=== PATIENT | female | born 1940 | race Caucasian/White ===

== ENCOUNTER 2017-02-22 09:43 | Observation (INO) | payer MEDICARE, BC ==
--- NOTE | 2017-02-22 10:04 | ERNOTE ---
Chest Pain/Cardiac HPI Date of Service: 02/22/17 Chief Complaint: Chest Pain Time Seen by Provider: 02/22/17 10:01 Source: patient Immunizations: IMMUNIZATION HX History of Influenza Vaccine Yes Hx Pneumococcal Vaccination Yes Allergies/Adverse Reactions: Allergies ciprofloxacin [From Cipro] Allergy (Unknown, Verified 02/22/17 09:59) ciprofloxacin HCl [From Cipro] Allergy (Unknown, Verified 02/22/17 09:59) sulfamethoxazole [From Bactrim] Allergy (Unknown, Verified 02/22/17 09:59) trimethoprim [From Bactrim] Allergy (Unknown, Verified 02/22/17 09:59) Sulfa (Sulfonamide Antibiotics) Allergy (Verified 02/22/17 09:59) Home Medications: HOME MEDICATIONS Oxybutynin Chloride 5 mg PO TID 02/28/12 [Last Taken Unknown] Aspirin 81 mg PO DAILY 01/18/16 [Last Taken Unknown] Atorvastatin Calcium 40 mg PO DAILY 01/18/16 [Last Taken Unknown] Clopidogrel Bisulfate 75 mg PO DAILY 01/18/16 [Last Taken Unknown] Doc-Q-Lace 100 mg PO BID 01/18/16 [Last Taken Unknown] Oyster Shell Calcium-Magnes Tb 1,250 mg PO DAILY 01/18/16 [Last Taken Unknown] Pantoprazole Sodium 40 mg PO DAILY 01/18/16 [Last Taken Unknown] Tylenol 500 mg PO TID 01/18/16 [Last Taken Unknown] Nitroglycerin [Nitrostat] 0.4 mg SL Q5MIN PRN 02/22/17 [Last Taken Unknown] Narrative: chest pain Date (Duration): 02/21/17 Timing: constant Severity/Quality: severe Location: substernal, central Chest Pain Radiation: no radiation Activities at Onset: rest Modifying Factors - Improves: Present: other - tylenol was of no help Modifying Factors - Worsens: Present: nitroglycerin, other - helped Nitro Today/Relief: 0.4 mg x 1, provided by ED, complete relief Aspirin Treatment Today: no aspirin today - patient is on blood thinner Review of Systems - Review of Systems Constitutional: Present: no symptoms reported EYE: Present: no symptoms reported ENT: Present: no symptoms reported Respiratory: Present: no symptoms reported Cardiology: Present: chest pain - anterior chest Gastrointestinal/Abdominal: Present: no symptoms reported, other - has chronic mild incontinence, no dysuria Genitourinary: Present: no symptoms reported Musculoskeletal: Present: no symptoms reported Skin: Present: no symptoms reported Neurological: Present: See HPI, other - has hx of Stroke with residual weaknes of lower ext and needs walker and wheelchair to get around at home Endocrine: Present: no symptoms reported Hematologic/Lymphatic: Present: easy bruising, other - currently on blood thinner Psych: Present: anxiety, other - hx of drinking beer daily All Other Systems: All systems neg except as marked - Narrative Narrative: all reviewed today , pmh, psh, allergies, meds, sh, and fam hx. - Patient's Past Medical History Patient History - Medical: Other - hx of stroke in 2016 with residual weakness Patient History - Cardiac/Respiratory: COPD, Valvular Heart Disease - chronic tobacco 1ppd daily greater than 50 years Patient History - Cancer: No Hx of Cancer Patient History - Surgical Procedures: Colonoscopy, T & A Patient History - Other: None LMP (females 10-50): Menopausal - Family History Sister Family History - Medical: Other - mother of pulmonary embolus - Social History Living Situations: home Psych History: No pertinent hx Alcohol Use: none Drug Use: none - Immunizations Hx Pneumococcal Vaccination: Yes History of Influenza Vaccine: Yes Physical Exam - Physical Exam General Appearance: Present: wd/wn, alert Head Exam: Present: normal inspection, no evidence of injury, no tenderness w palpation Ears, Nose, Throat: Present: normal ENT inspection, normal pharynx Neck: Present: normal inspection, nontender Respiratory: Present: no respiratory distress, decreased breath sounds, rhonchi Cardiovascular/Chest: Present: regular rate, rhythm, no murmur, normal peripheral pulses Peripheral Pulses: N=norm/S=strong/W=weak/B=bound/A=absent: Carotid (R): Normal , Carotid (L): Normal, Radial (R): Normal, Radial (L): Normal Gastrointestinal/Abdominal: Present: normal bowel sounds, nontender, nondistended Rectal Exam: Present: deferred Pelvic Exam: Present: deferred Back Exam: Present: normal inspection, normal range of motion, no vertebral tenderness Extremity Exam: Present: normal inspection, non-tender Neurological Exam: Present: alert, oriented, normal mood/affect, motor weakness - right lower ext Skin Exam: Present: normal color, warm/dry Lymphatic Exam: Present: no adenopathy ED Progress - Results and Orders Patient's Lab Results:: I have reviewed the patient's lab results. Results and Orders: Laboratory Tests 02/22/17 02/22/17 02/22/17 10:00 10:00 10:00 WBC 12.1 H RBC 4.25 Hgb 13.5 Hct 40.7 MCV 95.8 MCH 31.8 H MCHC 33.2 RDW 14.4 H Plt Count 240 MPV 10.4 H Immature Gran % (Auto) 0.20 Immature Gran # (Auto) 0.03 Neutrophils % 78.1 H Lymphocytes % 10.2 L Monocytes % 10.6 H Eosinophils % 0.7 Basophils % 0.2 Nucleated RBC % 0.0 Neutrophils # 9.4 H Lymphocytes # 1.2 L Monocytes # 1.3 H Eosinophils # 0.1 Absolute Basophils 0.0 PT 9.4 INR (Anticoag Therapy) 0.94 PTT (Leonardo) 22.7 L Sodium 139 Plasma Sodium 139 Potassium 3.9 Chloride 103 Carbon Dioxide 28.9 Anion Gap 11.0 BUN 23 Creatinine 1.13 Est GFR (Non-Af Amer) 50 L BUN/Creatinine Ratio 20.4 Random Glucose 126 H Calcium 9.6 Calcium Adj for Albumin 9.8 Total Bilirubin 0.4 AST 35 ALT 30 Alkaline Phosphatase 97 Troponin I 0.020 B-Natriuretic Peptide 2030 H Total Protein 7.5 Albumin 3.3 L - Vital Signs Patient's Vital Signs:: I have reviewed the patient's vital signs. Vital Signs: Vital Signs 02/22/17 09:51 Temperature 36.4 C L Pulse Rate 85 Respiratory 22 H Rate Blood Pressure 142/80 O2 Sat by Pulse 98 Oximetry - EKG EKG: NSR - X-Ray X-Ray #1 X-Ray: chest Interpretation: Reviewed by me X-ray Comments: [facility] PATIENT RADIOLOGY STUDY REPORT Patient Patient Name:LISETTE FIELD Date: 1940 Sex: F Order Number: [id number] Unique Exam ID: [id number] Exam Requested: CXRPALAT - Chest PA Lateral * Date Scheduled: 02-22-2017 10:25 AM Study Priority: Requesting Service: Requesting Physician: Arely Garber Reason for Exam: Chest Pain Radiological Report : [place] [address] NAME: LISETTE FIELD : 1940 MR #: [id number] CC: Arely Garber DO LOC: ER ADM DATE: X-RAY REPORT [id number] RAD/Chest PA Lateral * Exam Date: 02/22/2017 10:25 Ordering Physician: Arely Garber HISTORY: Chest Pain Additional history from technologist: Chest pain getting worse in the last couple days. TECHNIQUE: PA and lateral views of the chest were obtained. 2 images. COMPARISONS: 04/21/2015 FINDINGS: Chest PA Lateral * Hyperinflated lung volumes, with hyperlucent lungs. No consolidation or mass. No pneumothorax or pleural fluid collections. Cardiac size within normal limits, and overall grossly unchanged. Mild tortuosity of the thoracic aorta, stable. Patient has a large hiatal hernia with a significant portion of the stomach projecting posterior to the heart. Trachea is in normal position. Bones show degenerative changes of the spine. Decreased mineralization of bone suggestive of underlying osteopenia or osteoporosis. IMPRESSION: 1. Findings compatible with acute or chronic bronchitis versus reactive airways disease. Also consider COPD/emphysema, if the patient has history of smoking. 2. Large hiatal hernia. 3. Additional comments are as above. Electronically signed by Dez Cotton M.D.. Dez Cotton MD Dict: 02/22/17 1028 Typed: 02/22/17 1028/ 02/22/17 1030 02/22/17 1033 - CT/Ultrasound CT/Ultrasound Narrative: CTA : [facility] PATIENT RADIOLOGY STUDY REPORT Patient Patient Name:LISETTE FIELD Date: 1940 Sex: F Order Number: [id number] Unique Exam ID: [id number] Exam Requested: ANGIOCHES - CTA Chest Date Scheduled: 02-22-2017 12:54 PM Study Priority: Requesting Service: Requesting Physician: Arely Garber Reason for Exam: rule out pe Radiological Report : [place] [address] NAME: LISETTE FIELD : 1940 MR #: [id number] CC: Arely Garber DO LOC: ER ADM DATE: X-RAY REPORT [id number] CT/CTA Chest Exam Date: 02/22/2017 12:54 Ordering Physician: Arely Garber HISTORY: Chest pain. TECHNIQUE: Multiple thin-section contrast-enhanced axial CT images of the chest were obtained after rapid infusion of intravenous contrast material, according to pulmonary angiography protocol. Coronal maximal intensity projection (MIP) images were also submitted for interpretation. Dose reduction techniques using the adjustment of the mA and/or kV according to patient size and/ or use of AEC or iterative reconstruction were used in the acquisition of this exam. COMPARISONS: 12/29/2014. FINDINGS: CTA Chest: Pulmonary Arteries: Diagnostic Quality (for pulmonary arteries): Opacification of the pulmonary arterial branches is adequate. The breath hold is adequate. There is streak artifact from contrast material within the superior vena cava, which affects the adjacent pulmonary arteries. No definite filling defects are noted to suggest pulmonary thromboembolism. No definite axial CT image findings of right heart strain. Aorta: Opacification of the thoracic aorta is suboptimal for angiographic evaluation but no definite focal finding is seen. Multiple artifacts related to cardiac motion and streak artifact from contrast in the adjacent superior vena cava noted. Mediastinum: No mediastinal mass or lymphadenopathy noted. Incidental note of a large hiatal hernia , with most of the stomach seen within the chest. Heart: No significant pericardial effusion noted. There is mild to moderate cardiomegaly noted, with cardiac chamber enlargement, especially the left and right atria. Lung Parenchyma: No new consolidation or focal mass identified. Emphysematous changes and bilateral basilar opacities noted suggestive of atelectasis. There is a peripheral 2 x 2 cm scarlike opacity in the medial segment of the right middle lobe, stable. Central Airways: The trachea and bronchi grossly patent. Pleural Spaces: No pneumothorax or pleural effusions present. Bones: There is a new T7 compression fracture, with no definite signs of retropulsion of the posterior cortex. There is underlying osteopenia/osteoporosis suggested. Degenerative changes of the thoracolumbar spine noted. Chest Wall/Axillae: Anterior chest wall is grossly unremarkable. Axillary regions are also grossly normal. Upper Abdomen: Visualized portions of the abdomen demonstrates probable cysts of the liver, partially visualized, but grossly stable. Bilateral low density nodular lesions of the adrenal glands, also stable most likely adenomas. IMPRESSION: 1. Negative for acute pulmonary thromboembolism. 2. Suboptimal opacification of the thoracic aorta for angiographic evaluation without obvious acute findings. Potential subtle aortic intimal tear/dissection cannot be entirely excluded. 3. Emphysematous changes of the lungs. 4. Stable scarlike opacity of the medial segment right middle lobe. Consider continued follow-up/ surveillance. 5. Cardiomegaly, with enlargement of the cardiac chambers, especially the atria. 6. T7 compression fracture, of indeterminate age. It is new since 2014. Correlate clinically for acute versus subacute/chronic fracture as a potential cause of chest pain/back pain. Consider insufficiency versus pathologic fracture. Consider further evaluation by nonemergent thoracic spine MRI. 7. Large hiatal hernia with most of the stomach within the chest. 8. Additional comments are as above. Electronically signed by Dez Cotton M.D.. Dez Cotton MD Dict: 02/22/17 1257 Typed: 02/22/17 1257/ 02/22/17 1311 02/22/17 1314 , Approved by: DEZ COTTON Approval Date: 02-22-2017 Approval Time: 12:57 PM THIS REPORT WAS RECEIVED FROM THE [employer] [facility] - Progress/Reassessment Chief Complaint: Chest Pain Progress:: Improved - down to just a discomfort - Transfer of Care Receiving Physician: Shauna Carvajal Pending Results: CT/MRI results - cta NEG FOR PE Expected Disposition: Admit Plan - Plan Plan: Patient is high risk for PE, strong family hx and will need admission for chest pain rule out Patient is pending a CTA for rule out of PE, high risk patient 2 day hx of sob and smokes 1ppd cta is neg for PE but she has a thoracic compression fracture at t5 which is new since 2014 and patient was notified of this finding on ct, and that there is a spot on her lungs concerning that will need followup as an outpatient Departure Clinical Impression: Chest pain Qualifiers: Chest pain type: chest pain on breathing Qualified Code(s): R07.1 - Chest pain on breathing Thoracic compression fracture Qualifiers: Encounter type: sequela Fracture type: closed Qualified Code(s): S22.000S - Wedge compression fracture of unspecified thoracic vertebra, sequela COPD (chronic obstructive pulmonary disease) Qualifiers: COPD type: emphysema Emphysema type: panlobular Qualified Code(s): J43.1 - Panlobular emphysema - Departure Disposition: [facility] Condition: Good
[2017-02-22 10:13] LABS: Hematocrit 40.7 % (37.0-47.0); Hemoglobin 13.5 gm/dL (12.5-16.0); Mean Cell Volume 95.8 fl (78-100); Mean Corpuscular Hemoglobin 31.8 pg (27-31); Mean Corpuscular Hgb Conc 33.2 g/dl (32-36); Mean Platelet Volume 10.4 fl (6.0-9.5); Neutrophil # 9.4 K/mm3 (1.3-6.0); Neutrophil % 78.1 % (42-75.0); Platelet Count 240 K/mm3 (150-450); Red Blood Count 4.25 M/mm3 (4.2-5.4); Red Cell Distribution Width 14.4 % (11.5-14.0); White Blood Count 12.1 K/mm3 (4.0-10.5)
[2017-02-22 10:25] LABS: Prothrombin Time (Patient) 9.4 Seconds (9.0-11.0)
[2017-02-22 10:27] LABS: INR 0.94 INR (0.90-1.10); Partial Thrombolplastin Time 22.7 Seconds (24-32)
[2017-02-22 10:33] LABS: Troponin I 0.02 ng/ml (0.00-0.10)
[2017-02-22 10:35] LABS: Albumin * 3.3 gm/dl (3.4-5.0); BUN/Creatinine Ratio 20.4 (9.0-21.6); Bilirubin, Total 0.4 mg/dL (0.0-1.1); Ca. Corrected For Albumin 9.8 mg/dL (8.4-10.2); Calcium * 9.6 mg/dL (7.9-10.9); Carbon Dioxide 28.9 mmol/L (24-32.6); Potassium 3.9 mmol/L (3.4-4.6); Total Protein 7.5 gm/dL (6.2-8.2)
[2017-02-22] MEDS ORDERED: NORMAL SALINE 250 ML IV ONE (12:09)
[2017-02-22] MEDS ORDERED: ACETAMINOPHEN 325 MG TABLET ONE (13:46)
[2017-02-22] MEDS ORDERED: ACETAMINOPHEN 325 MG TABLET PO ONE (13:46)
--- NOTE | 2017-02-22 16:22 | HP ---
Chief Complaint - Chief Complaint Date of Service: 02/22/17 Time of Service: 16:17 Chief Complaint: chest pain/back pain/neck pain History of Present Illness: Lynda Emanuel, is a 76-year-old white female, patient of Dr. Crockett, with previous medical history of CVA, nonruptured cerebral aneurysm, degenerative disc disease, hypertension, hyperlipidemia, chronic smoking, who was admitted on 02/22/2017 because of sudden acute chest pain, back pain and neck pain. One day prior to admission the patient was in her usual self until she suddenly developed chest pain, back pain, neck pain, and shoulder pain. She said it was over more than 10 over 10, nonrelenting, stabbing in character, not increased with activity, not associated with N/V. She took her usual Tylenol arthritis and he did not give any relief and so she went or emergency room today. Her EKg showed NSR, troponin was WNL, CXR showed no acute cardiopulmonary findings except for hiatal hernia and COPD changes. She was then admitted for further workup. Her CTA did not show P.E. or dissection but showed T 7 compression fracture of indeterminate age. She deneid any h/o trauma. - Patient's Past Medical History Patient History - Medical: Other - hx of stroke in 2016 with residual weakness Patient History - Cardiac/Respiratory: COPD, Valvular Heart Disease - chronic tobacco 1ppd daily greater than 50 years Patient History - Cancer: No Hx of Cancer Patient History - Surgical Procedures: Colonoscopy, T & A Patient History - Other: None LMP (females 10-50): Menopausal - Family History Sister Family History - Medical: Other - mother of pulmonary embolus Family History - Cardiac/Respiratory: Asthma, Hypertension Family History - Cancer: No pertinent family hx Mother Family History - Medical: , No pertinent hx Family History - Cardiac/Respiratory: Pulmonary Embolism Family History - Cancer: No pertinent family hx Father Family History - Medical: , Diabetes Type 2 Insulin Dependent Family History - Cardiac/Respiratory: History Unknown Family History - Cancer: No pertinent family hx - Social History Living Situations: home Psych History: No pertinent hx Smoking Status: Current every day smoker Have you smoked in the past 12 months: Yes Do you dip or chew tobacco: No Smoking Start Date: 02/25/59 Patient requests Smoking Cessation Consult: No Initiate information on Smoking Cessation: Yes Alcohol Use: none Drug Use: none - Immunizations Hx Pneumococcal Vaccination: Yes History of Influenza Vaccine: Yes Review Of Systems (GEN) - Review of Systems Generalized/Overall Review: Absent: Weakness, Chills, Fever Respiratory: Present: Cough, Shortness of Breath Cardiac: Present: Chest Pain. Absent: Edema, Palpitations Abdominal: Absent: Nausea, Vomiting Genitourinary: Absent: Urgency, Frequency Musculoskeletal: Present: Joint Pain - shoulder, Back Pain, Neck Pain Immunizations: IMMUNIZATION HX History of Influenza Vaccine Yes Hx Pneumococcal Vaccination Yes Allergies/Adverse Reactions: Allergies Allergy/AdvReac Type Severity Reaction Status Date / Time ciprofloxacin [From Cipro] Allergy Unknown Verified 02/22/17 16:11 ciprofloxacin HCl Allergy Unknown Verified 02/22/17 16:11 [From Cipro] sulfamethoxazole Allergy Unknown Verified 02/22/17 16:11 [From Bactrim] trimethoprim [From Bactrim] Allergy Unknown Verified 02/22/17 16:11 Sulfa (Sulfonamide Allergy Verified 02/22/17 16:11 Antibiotics) Home Medications: HOME MEDICATIONS Oxybutynin Chloride 5 mg PO TID 02/28/12 [Last Taken Unknown] Acetaminophen [Tylenol] 500 mg PO BID 02/22/17 [Last Taken Unknown] Aspirin [Aspirin EC] 81 mg PO DAILY 02/22/17 [Last Taken Unknown] Atorvastatin Calcium [Lipitor] 40 mg PO HS 02/22/17 [Last Taken Unknown] Calcium Carbonate/Vitamin D3 [Oyster Shell Calcium-Vit D Tab] 1 each PO DAILY [Last Taken Unknown] Clopidogrel Bisulfate [Plavix] 75 mg PO DAILY 02/22/17 [Last Taken Unknown] Docusate Sodium [Doc-Q-Lace] 100 mg PO BID PRN 02/22/17 [Last Taken Unknown] Multivitamin [Multivitamins] 1 tab PO DAILY 02/22/17 [Last Taken Unknown] Pantoprazole Sodium 40 mg PO DAILY 02/22/17 [Last Taken Unknown] Exam - Exam Vital Signs: Vital Signs - Last Taken Temp 36.7 C 02/22/17 14:40 Pulse 93 02/22/17 14:40 Resp 20 02/22/17 14:40 BP 156/74 02/22/17 14:40 Pulse Ox 97 02/22/17 14:40 Constitutional: Present: Alert, Oriented x3, Cooperative, Elderly, Thin and frail ENT Exam: Present: hearing grossly normal Eye Exam: bilateral eye: normal inspection, PERRL, EOMI Neck: Present: supple Back Exam: Present: vertebral tenderness Respiratory: Present: decreased breath sounds, No rales, No wheezing Cardiovascular/Chest: Present: regular rate, rhythm, no JVD, no murmur Abdomen: Present: Normal bowel sounds, soft, nontender, nondistended Extremity: Present: no pedal edema, no calf tenderness Diagnostic Studies: Laboratory Results WBC 12.1 K/mm3 (4.0-10.5) H 02/22/17 10:00 RBC 4.25 M/mm3 (4.2-5.4) 02/22/17 10:00 Hgb 13.5 gm/dL (12.5-16.0) 02/22/17 10:00 Hct 40.7 % (37.0-47.0) 02/22/17 10:00 MCV 95.8 fl (78-100) 02/22/17 10:00 MCH 31.8 pg (27-31) H 02/22/17 10:00 MCHC 33.2 g/dl (32-36) 02/22/17 10:00 RDW 14.4 % (11.5-14.0) H 02/22/17 10:00 Plt Count 240 K/mm3 (150-450) 02/22/17 10:00 MPV 10.4 fl (6.0-9.5) H 02/22/17 10:00 Immature Gran % (Auto) 0.20 % (0.001-0.429) 02/22/17 10:00 Immature Gran # (Auto) 0.03 K/mm3 (0.000-0.0310) 02/22/17 10:00 Neutrophils % 78.1 % (42-75.0) H 02/22/17 10:00 Lymphocytes % 10.2 % (20-51) L 02/22/17 10:00 Monocytes % 10.6 % (0.0-9) H 02/22/17 10:00 Eosinophils % 0.7 % (0.0-3.0) 02/22/17 10:00 Basophils % 0.2 % (0.0-1.0) 02/22/17 10:00 Nucleated RBC % 0.0 k/mm3 (0-1) 02/22/17 10:00 Neutrophils # 9.4 K/mm3 (1.3-6.0) H 02/22/17 10:00 Lymphocytes # 1.2 k/mm3 (1.5-3.5) L 02/22/17 10:00 Monocytes # 1.3 k/mm3 (0.0-1.0) H 02/22/17 10:00 Eosinophils # 0.1 k/mm3 (0.0-0.7) 02/22/17 10:00 Absolute Basophils 0.0 k/mm3 (0.0-0.1) 02/22/17 10:00 PT 9.4 Seconds (9.0-11.0) 02/22/17 10:00 INR (Anticoag Therapy) 0.94 INR (0.90-1.10) 02/22/17 10:00 PTT (Fleming) 22.7 Seconds (24-32) L 02/22/17 10:00 Sodium 139 mmol/L (132-142) 02/22/17 10:00 Plasma Sodium 139 mmol/L (130-142) 02/22/17 10:00 Potassium 3.9 mmol/L (3.4-4.6) 02/22/17 10:00 Chloride 103 mmol/L (97-106) 02/22/17 10:00 Carbon Dioxide 28.9 mmol/L (24-32.6) 02/22/17 10:00 Anion Gap 11.0 mmol/L (6.8-13.8) 02/22/17 10:00 BUN 23 mg/dL (3-23) 02/22/17 10:00 Creatinine 1.13 mg/dL (0.4-1.4) 02/22/17 10:00 Est GFR (Non-Af Amer) 50 mL/min (60-130) L 02/22/17 10:00 BUN/Creatinine Ratio 20.4 (9.0-21.6) 02/22/17 10:00 Random Glucose 126 mg/dL (70-110) H 02/22/17 10:00 Calcium 9.6 mg/dL (7.9-10.9) 02/22/17 10:00 Calcium Adj for Albumin 9.8 mg/dL (8.4-10.2) 02/22/17 10:00 Total Bilirubin 0.4 mg/dL (0.0-1.1) 02/22/17 10:00 AST 35 U/L (0-48) 02/22/17 10:00 ALT 30 U/L (19-67) 02/22/17 10:00 Alkaline Phosphatase 97 U/L (50-170) 02/22/17 10:00 Troponin I 0.020 ng/ml (0.00-0.10) 02/22/17 10:00 B-Natriuretic Peptide 2030 pg/mL (5-550) H 02/22/17 10:00 Total Protein 7.5 gm/dL (6.2-8.2) 02/22/17 10:00 Albumin 3.3 gm/dl (3.4-5.0) L 02/22/17 10:00 Assessment/Plan - Assessment/Plan (1) Chest pain Assessment: likely due to T7 compression fracture as associated with back, neck pain, shoulder pain. will follow up with a second troponin and EKG. it is possible that it can be due to her severe hiatal hernia but less likely. no clear cut aortic dissection. Problem: Acute Qualifiers: Chest pain type: unspecified Qualified Code(s): R07.9 - Chest pain, unspecified (2) Thoracic compression fracture Assessment: T7 likely pathological from osteoporosis. will do MRI for age determination. Problem: Acute Qualifiers: Encounter type: sequela Fracture type: closed Qualified Code(s): S22.000S - Wedge compression fracture of unspecified thoracic vertebra, sequela (3) Osteoporosis Problem: Chronic (4) Elevated brain natriuretic peptide (BNP) level Assessment: likely due to her COPD Problem: Acute (5) Hiatal hernia Problem: Acute (6) Aneurysm, cerebral, nonruptured Problem: Chronic (7) Hypertension Problem: Chronic Qualifiers: Hypertension type: essential hypertension Qualified Code(s): I10 - Essential (primary) hypertension (8) Hyperlipidemia Problem: Chronic (9) PAD (peripheral artery disease) Problem: Chronic (10) History of CVA in adulthood Problem: Chronic
[2017-02-22] MEDS ORDERED: DOCUSATE SODIUM 100 MG CAPSULE PO PRN (16:40)
[2017-02-22] MEDS: OXYBUTYNIN CHLORIDE 5 MG TABLET PO SCH (16:46)
[2017-02-22] MEDS ORDERED: OXYBUTYNIN CHLORIDE 5 MG TABLET PO SCH (17:00)
[2017-02-22] MEDS: ACETAMINOPHEN 500 MG TABLET PO SCH (20:05)
[2017-02-22] MEDS ORDERED: ATORVASTATIN CALCIUM 40 MG TABLET PO SCH (21:00)
[2017-02-23] MEDS: HYDROcodone/ACETAMINOPHEN 1 EACH TABLET PO PRN ×2 (06:52→14:28)
[2017-02-23] MEDS ORDERED: PANTOPRAZOLE SODIUM 40 MG TABLET.EC PO SCH (07:00)
[2017-02-23] MEDS: OXYBUTYNIN CHLORIDE 5 MG TABLET PO SCH ×2 (08:28→14:29)
[2017-02-23] MEDS: ACETAMINOPHEN 500 MG TABLET PO SCH (08:29)
[2017-02-23] MEDS ORDERED: CLOPIDOGREL BISULFATE 75 MG TABLET PO SCH (09:00)
[2017-02-23] MEDS ORDERED: MULTIVITAMINS 1 CAP CAPSULE PO SCH (09:00)
[2017-02-23] MEDS ORDERED: ASPIRIN 81 MG TABLET.DR PO SCH (09:00)
[2017-02-23] MEDS ORDERED: CALCIUM CARBONATE/VITAMIN D3 1 TAB TABLET PO SCH (09:00)
[2017-02-23 09:53] VITALS: BP 123/77
--- NOTE | 2017-02-23 10:02 | DS ---
(1) Chest pain Diagnosis(s): AMI ruled out. Problem: Acute QualifierTitle: Chest pain type: unspecified Qualified Code(s): R07.9 - Chest pain, unspecified (2) Thoracic compression fracture Diagnosis(s): T7 old compression Problem: Acute QualifierTitle: Encounter type: sequela Fracture type: closed Qualified Code(s): S22.000S - Wedge compression fracture of unspecified thoracic vertebra, sequela (3) Osteoporosis Problem: Chronic (4) Elevated brain natriuretic peptide (BNP) level Problem: Acute (5) Hiatal hernia Problem: Acute (6) Aneurysm, cerebral, nonruptured Problem: Chronic (7) Hypertension Problem: Chronic QualifierTitle: Hypertension type: essential hypertension Qualified Code( s): I10 - Essential (primary) hypertension (8) Hyperlipidemia Problem: Chronic (9) PAD (peripheral artery disease) Problem: Chronic (10) History of CVA in adulthood Problem: Chronic Description of Stay: Lynda Emanuel, is a 76-year-old white female, patient of Dr. Crockett, with previous medical history of CVA, nonruptured cerebral aneurysm, degenerative disc disease, hypertension, hyperlipidemia, chronic smoking, who was admitted on 02/22/2017 because of sudden acute chest pain, back pain and neck pain. One day prior to admission the patient was in her usual self until she suddenly developed chest pain, back pain, neck pain, and shoulder pain. She said it was over more than 10 over 10, nonrelenting, stabbing in character, not increased with activity, not associated with N/V. She took her usual Tylenol arthritis and he did not give any relief and so she went or emergency room today. Her EKg showed NSR, troponin was WNL, CXR showed no acute cardiopulmonary findings except for hiatal hernia and COPD changes. She was then admitted for further workup. Her CTA did not show P.E. or dissection but showed T 7 compression fracture of indeterminate age. She denied any h/o trauma. We did an MRI and it showed no edema and likely an old fracture. Her pain was better controlled with Marmora. She was ruled out for AMI. Will discharge patient today and will leave it up to her PCP if he wants to schedule an outpatient stress test. Procedures Performed: none Discharge Disposition: Home self care Disposition: Home self-care Condition: Good Discharge Diet: Low salt Problem Oriented Discharge Instructions to Patient/Family: Spinal Compression Fracture, Chest Pain Observation Additional Patient Instructions (free text): TCM appointment unless assisted discharge. Thank you! Maeve @ [phone]. Follow up with her PCP- Dr Crockett next week.03-05-17 @ 1:00pm. Has [facility] ongoing, please call and fax discharge orders to [facility]. Prescriptions (Any new or edited meds): HYDROcodone/ACETAMINOPHEN [Marmora 5-325] 1 each PO Q4H PRN #30 tablet PRN Reason: Moderate Pain (Pain Scale 4-6) Complete Home Medications List: Complete Home Medication List: Oxybutynin Chloride 5 mg PO TID 02/28/12 Acetaminophen [Tylenol] 500 mg PO BID 02/22/17 Aspirin [Aspirin EC] 81 mg PO DAILY 02/22/17 Atorvastatin Calcium [Lipitor] 40 mg PO HS 02/22/17 Calcium Carbonate/Vitamin D3 [Oyster Shell Calcium-Vit D Tab] 1 each PO DAILY Clopidogrel Bisulfate [Plavix] 75 mg PO DAILY 02/22/17 Docusate Sodium [Doc-Q-Lace] 100 mg PO BID PRN 02/22/17 Multivitamin [Multivitamins] 1 tab PO DAILY 02/22/17 Pantoprazole Sodium 40 mg PO DAILY 02/22/17 HYDROcodone/ACETAMINOPHEN [Marmora 5-325] 1 each PO Q4H PRN #30 tablet 02/23/17
== END 2017-02-23 16:40 | disposition home health service (06) ==
LOC: ER 09:43 → MS 14:05
PROVIDERS: ADMIT Internal Medicine; ATTEND Internal Medicine
DX: I10 Essential (primary) hypertension; M51.34 Other intervertebral disc degeneration, thoracic region; I73.9 Peripheral vascular disease, unspecified; M48.54XA Collapsed vertebra, not elsewhere classified, thoracic region, initial encounter for fracture; R07.1 Chest pain on breathing; M81.0 Age-related osteoporosis without current pathological fracture; F17.210 Nicotine dependence, cigarettes, uncomplicated; J43.1 Panlobular emphysema; E78.5 Hyperlipidemia, unspecified

== ENCOUNTER 2017-05-06 19:47 | Inpatient (IN) | payer MEDICARE, BC ==
--- NOTE | 2017-05-06 20:15 | ERNOTE ---
Dyspnea - General Presenting Symptoms: shortness of breath Time Seen by Provider: 05/06/17 20:00 Source: patient Exam Limitations: no limitations - Immun/Allergies/Home Medications Immunizations: IMMUNIZATION HX Immunizations Up to Date Yes History of Influenza Vaccine Yes Hx Pneumococcal Vaccination Yes Allergies/Adverse Reactions: Allergies ciprofloxacin [From Cipro] Allergy (Unknown, Verified 02/22/17 16:11) ciprofloxacin HCl [From Cipro] Allergy (Unknown, Verified 02/22/17 16:11) sulfamethoxazole [From Bactrim] Allergy (Unknown, Verified 02/22/17 16:11) trimethoprim [From Bactrim] Allergy (Unknown, Verified 02/22/17 16:11) Sulfa (Sulfonamide Antibiotics) Allergy (Verified 02/22/17 16:11) Home Medications: HOME MEDICATIONS Oxybutynin Chloride 5 mg PO TID 02/28/12 [Last Taken Unknown] Acetaminophen [Tylenol] 500 mg PO BID PRN 02/22/17 [Last Taken Unknown] Aspirin [Aspirin EC] 81 mg PO DAILY 02/22/17 [Last Taken Unknown] Atorvastatin Calcium [Lipitor] 40 mg PO HS 02/22/17 [Last Taken Unknown] Calcium Carbonate/Vitamin D3 [Oyster Shell Calcium-Vit D Tab] 1 each PO DAILY [Last Taken Unknown] Clopidogrel Bisulfate [Plavix] 75 mg PO DAILY 02/22/17 [Last Taken Unknown] Multivitamin [Multivitamins] 1 tab PO DAILY 02/22/17 [Last Taken Unknown] Pantoprazole Sodium 40 mg PO DAILY 02/22/17 [Last Taken Unknown] - History of Present Illness Narrative: Pt has had shortness of breath off and on for 2 days. today it continued to worsen. Severity: moderate Treatment SCRAP PREPARATION SUPERVISOR: none Initiating event: Reports: none Frequency of episodes: Reports: no prior episodes Modifying Factors - (Improves): Reports: nothing Modifying Factors (Worsens): Reports: nothing Associated Symptoms-Dyspnea: Reports: anxiety - believes this may be due to anxiety. Denies: fever/chills Review of Systems - Review of Systems Constitutional: Absent: recent illness, fever EYE: Absent: vision changes ENT: Present: nose congestion - minimal Respiratory: Present: See HPI Cardiology: Absent: chest pain Gastrointestinal/Abdominal: Present: diarrhea - on occasion. Absent: nausea, vomiting Genitourinary: Absent: frequency, dysuria Musculoskeletal: Absent: back pain, neck pain Skin: Absent: rash Neurological: Present: anxiety. Absent: numbness, tingling Endocrine: Absent: excessive sweating - Patient's Past Medical History Patient History - Medical: Osteoporosis Patient History - Cardiac/Respiratory: Aneurysm, COPD, CVA/Stroke, Hypertension , Hyperlipidemia, Valvular Heart Disease Patient History - Cancer: No Hx of Cancer Patient History - Surgical Procedures: Back Surgery, Cataracts, Colonoscopy, T & A, Other, Urology Patient History - Other: None LMP (females 10-50): Menopausal - Family History Sister Family History - Medical: Other Family History - Cardiac/Respiratory: Asthma, Hypertension Family History - Cancer: No pertinent family hx Mother Family History - Medical: , No pertinent hx Family History - Cardiac/Respiratory: Pulmonary Embolism Family History - Cancer: No pertinent family hx Father Family History - Medical: , Diabetes Type 2 Insulin Dependent Family History - Cardiac/Respiratory: History Unknown Family History - Cancer: No pertinent family hx - Social History Living Situations: home Psych History: No pertinent hx - Immunizations Immunizations Up to Date: Yes Hx Pneumococcal Vaccination: Yes History of Influenza Vaccine: Yes Physical Exam - Physical Exam General Appearance: Present: wd/wn, alert, no apparent distress Head Exam: Present: normal inspection, no evidence of injury Eye Exam: Normal inspection: bilateral Ears, Nose, Throat: Present: normal ENT inspection Neck: Present: normal inspection, nontender Respiratory: Present: no respiratory distress, normal breath sounds, lungs clear Cardiovascular/Chest: Present: regular rate, rhythm, no murmur, normal peripheral pulses Gastrointestinal/Abdominal: Present: nondistended Back Exam: Present: normal range of motion Extremity Exam: Present: normal inspection, normal range of motion, no edema Neurological Exam: Present: alert, oriented, normal mood/affect, no motor/ sensory deficits Skin Exam: Present: normal color, warm/dry Lymphatic Exam: Present: no adenopathy ED Progress - Results and Orders Patient's Lab Results:: I have reviewed the patient's lab results. Results and Orders: Laboratory Tests 05/06/17 05/06/17 05/06/17 20:32 20:32 20:32 WBC 11.7 H Hgb 14.0 Hct 42.2 Plt Count 292 Neutrophils % 78.7 H D-Dimer 1.50 H Sodium 146 H Potassium 4.4 Chloride 106 Anion Gap 16.7 H BUN 22 Creatinine 0.99 Random Glucose 123 H Calcium 9.5 Total Bilirubin 0.3 AST 33 ALT 59 Alkaline Phosphatase 110 B-Natriuretic Peptide 90565 H Total Protein 7.2 Albumin 3.4 - Vital Signs Patient's Vital Signs:: I have reviewed the patient's vital signs. Vital Signs: Vital Signs 05/06/17 19:53 Temperature 36.4 C L Pulse Rate 77 Respiratory 21 H Rate Blood Pressure 167/74 O2 Sat by Pulse 97 Oximetry - EKG EKG read: Interp. by me EKG Comments: NSR, incomplete RBBB, left anterior facicular block. non specific ST-T wave changes - X-Ray X-Ray #1 X-Ray: chest Interpretation: Interp. by me X-ray Comments: B/L lower lobe infiltrates. - CT/Ultrasound CT/Ultrasound Narrative: CTA chest PE protocol; PE found in the RLL. pulmonary edema present. spoke with Dr. Carey at 22:10 - Progress/Reassessment Chief Complaint: Dyspnea Progress Note-Subjective: 05/06/17 22:[address] Sheridan and he agrees with admit. He prefers lovenox for anticoagulation tonight Departure Clinical Impression: Pulmonary embolism Qualifiers: Pulmonary embolism type: other Chronicity: acute Acute cor pulmonale presence: without acute cor pulmonale Qualified Code(s): I26.99 - Other pulmonary embolism without acute cor pulmonale Pulmonary edema Qualifiers: Chronicity: acute Qualified Code(s): J81.0 - Acute pulmonary edema - Departure Disposition: Still a patient Condition: Fair
[2017-05-06 20:33] LABS: Hematocrit 42.2 % (37.0-47.0); Mean Cell Volume 94.8 fl (78-100); Mean Corpuscular Hemoglobin 31.5 pg (27-31); Mean Corpuscular Hgb Conc 33.2 g/dl (32-36); Mean Platelet Volume 10.5 fl (6.0-9.5); Neutrophil # 9.2 K/mm3 (1.3-6.0); Neutrophil % 78.7 % (42-75.0); Platelet Count 292 K/mm3 (150-450); Red Blood Count 4.45 M/mm3 (4.2-5.4); Red Cell Distribution Width 15.3 % (11.5-14.0); White Blood Count 11.7 K/mm3 (4.0-10.5)
[2017-05-06 20:53] LABS: Albumin * 3.4 gm/dl (3.4-5.0); Anion Gap 16.7 mmol/L (6.8-13.8); BUN/Creatinine Ratio 22.2 (9.0-21.6); Bilirubin, Total 0.3 mg/dL (0.0-1.1); Ca. Corrected For Albumin 9.7 mg/dL (8.4-10.2); Calcium * 9.5 mg/dL (7.9-10.9); Carbon Dioxide 27.7 mmol/L (24-32.6); Potassium 4.4 mmol/L (3.4-4.6); Total Protein 7.2 gm/dL (6.2-8.2)
[2017-05-06] MEDS ORDERED: ENOXAPARIN SODIUM 30 MG/0.3 ML SYRG SC ONE ×2 (22:39→22:41)
[2017-05-07] MEDS ORDERED: ENOXAPARIN SODIUM 40 MG/0.4 ML SYRG SC SCH (09:45)
[2017-05-07] MEDS ORDERED: ACETAMINOPHEN 500 MG TABLET PO PRN (09:52)
[2017-05-07] MEDS: PANTOPRAZOLE SODIUM 40 MG TABLET.EC PO SCH (10:54)
[2017-05-07] MEDS: METOPROLOL SUCCINATE 25 MG TABLET.SA PO SCH (10:54)
--- NOTE | 2017-05-07 13:01 | PN ---
Subjective - Date and Time Seen Date: 05/07/17 Time: 12:57 Subjective Narrative: Breathing better and no chest pain Objective - Review of Systems Generalized/Overall Review: Reports: No Symptoms Reported EENTM: Reports: No Symptoms Reported Respiratory: Reports: No Symptoms Reported Cardiac: Reports: No Symptoms Reported Abdominal: Reports: No Symptoms Reported Genitourinary Symptoms: Reports: No Symptoms Reported Skin: Reports: No Symptoms Reported - Vitals Vitals: Last Vital Signs Temp 36.6 C 05/07/17 10:40 Pulse 82 05/07/17 10:54 Resp 18 05/07/17 10:40 BP 144/76 05/07/17 10:54 Pulse Ox 96 05/07/17 10:40 - Exam Constitutional: Present: Alert, Oriented x3 ENT Exam: Present: normal ENT inspection Respiratory: Present: lungs clear, normal breath sounds Cardiovascular/Chest: Present: regular rate, rhythm Abdomen: Present: Normal bowel sounds, soft, nontender Extremity: Present: lower extremity edema Assessment/Plan - Problems/Diagnosis (1) Pulmonary embolism Problem: Acute Qualifiers: Pulmonary embolism type: other Chronicity: acute Acute cor pulmonale presence: without acute cor pulmonale Qualified Code(s): I26.99 - Other pulmonary embolism without acute cor pulmonale Narrative: order head ct to r/o bleeding aneurysm then start anti coagulation (2) Basilar artery aneurysm Problem: Acute Narrative: head ct (3) CHF (congestive heart failure) Problem: Acute Narrative: will do echo ,more diuretic and repeat BNP
[2017-05-07] MEDS ORDERED: FUROSEMIDE 10 MG/ML VIAL IV ONE (13:02)
--- NOTE | 2017-05-07 13:58 | HP ---
Chief Complaint - Chief Complaint Date of Service: 05/07/17 Time of Service: 07:45 Chief Complaint: Shortness of breath History of Present Illness: 76-year-old female presented to the hospital per private vehicle short of breath. Evaluation in the emergency room determined that she had a small pleural effusion, possible pneumonia, and a right lower lobe pulmonary embolus. Her d-dimer was elevated and so the CT with contrast was ordered determining the PE. The nidus of the embolus is unknown. She's had no previous pulmonary emboli which she is aware. She is acutely short of breath so it appears this is an acute embolus. - Narrative Narrative: She is actually enjoyed relatively good health. She does have osteoporosis. - Patient's Past Medical History Patient History - Medical: Osteoporosis Patient History - Cardiac/Respiratory: Aneurysm, COPD, CVA/Stroke, Hypertension , Hyperlipidemia, Valvular Heart Disease Patient History - Cancer: No Hx of Cancer Patient History - Surgical Procedures: Back Surgery, Cataracts, Colonoscopy, T & A, Other, Urology Patient History - Other: None LMP (females 10-50): Menopausal - Family History Sister Family History - Medical: Other Family History - Cardiac/Respiratory: Asthma, Hypertension Family History - Cancer: No pertinent family hx Mother Family History - Medical: , No pertinent hx Family History - Cardiac/Respiratory: Pulmonary Embolism Family History - Cancer: No pertinent family hx Father Family History - Medical: , Diabetes Type 2 Insulin Dependent Family History - Cardiac/Respiratory: History Unknown Family History - Cancer: No pertinent family hx - Social History Living Situations: home Abuse History: No History of abuse Psych History: No pertinent hx Smoking Status: Current every day smoker Have you smoked in the past 12 months: Yes Alcohol Use: none Drug Use: none - Immunizations Immunizations Up to Date: Yes Hx Pneumococcal Vaccination: Yes History of Influenza Vaccine: Yes Review Of Systems (GEN) - Review of Systems Generalized/Overall Review: Present: Weakness EENTM: Present: No Symptoms Reported Respiratory: Present: Shortness of Breath Cardiac: Present: No Symptoms Reported Abdominal: Present: No Symptoms Reported Genitourinary: Present: No Symptoms Reported Musculoskeletal: Present: No Symptoms Reported Neurological: Present: No Symptoms Reported Skin: Present: No Symptoms Reported Endocrine: Present: No Symptoms Reported Misc: All systems neg except as marked Additional Comments: Patient has recurrent every day smoker. Immunizations: IMMUNIZATION HX Immunizations Up to Date Yes History of Influenza Vaccine Yes Hx Pneumococcal Vaccination Yes Allergies/Adverse Reactions: Allergies Allergy/AdvReac Type Severity Reaction Status Date / Time ciprofloxacin [From Cipro] Allergy Unknown Verified 02/22/17 16:11 ciprofloxacin HCl Allergy Unknown Verified 02/22/17 16:11 [From Cipro] sulfamethoxazole Allergy Unknown Verified 02/22/17 16:11 [From Bactrim] trimethoprim [From Bactrim] Allergy Unknown Verified 02/22/17 16:11 Sulfa (Sulfonamide Allergy Verified 02/22/17 16:11 Antibiotics) Home Medications: HOME MEDICATIONS Oxybutynin Chloride 5 mg PO TID 02/28/12 [Last Taken Unknown] Acetaminophen [Tylenol] 500 mg PO BID PRN 02/22/17 [Last Taken Unknown] Aspirin [Aspirin EC] 81 mg PO DAILY 02/22/17 [Last Taken Unknown] Atorvastatin Calcium [Lipitor] 40 mg PO HS 02/22/17 [Last Taken Unknown] Calcium Carbonate/Vitamin D3 [Oyster Shell Calcium-Vit D Tab] 1 each PO DAILY [Last Taken Unknown] Clopidogrel Bisulfate [Plavix] 75 mg PO DAILY 02/22/17 [Last Taken Unknown] Multivitamin [Multivitamins] 1 tab PO DAILY 02/22/17 [Last Taken Unknown] Pantoprazole Sodium 40 mg PO DAILY 02/22/17 [Last Taken Unknown] Exam - Exam Vital Signs: Vital Signs - Last Taken Temp 36.6 C 05/07/17 10:40 Pulse 82 05/07/17 10:54 Resp 18 05/07/17 10:40 BP 144/76 05/07/17 10:54 Pulse Ox 96 05/07/17 10:40 Constitutional: Present: Alert, Oriented x3, Cooperative, Well developed, Well nourished, No distress ENT Exam: Present: normal ENT inspection, hearing grossly normal, pharynx normal Eye Exam: bilateral eye: normal inspection, PERRL, EOMI Neck: Present: non-tender, full range of motion, normal inspection, trachea midline Back Exam: Present: normal inspection, no CVA tenderness, no vertebral tenderness Respiratory: Present: chest non-tender, decreased breath sounds, inspiration. Absent: accessory muscle use, rhonchi, stridor, wheezing, expiration (prolonged) , No rales, No wheezing, plerual rub Cardiovascular/Chest: Present: normal peripheral pulses, regular rate, rhythm, no chest tenderness, edema - There is just a trace in both lower extremities mostly at the ankles. Peripheral Pulses: carotid (R): 2+, carotid (L): 2+, femoral (R): 2+, femoral (L ): 2+, dorsalis-pedis (R): 2+, dorsalis-pedis (L): 2+, radial (R): 2+, radial (L ): 2+ Abdomen: Present: Normal bowel sounds, soft, nontender, nondistended, no rebound tenderness, no hepatospenomegaly, no masses. Absent: obese, tender /Rectal: Present: Exam deferred Extremity: Present: normal range of motion, no calf tenderness, normal capillary refill, pelvis stable, lower extremity edema, pedal edema, other - Homans sign is negative. Absent: claudication Skin Exam: Present: other - Mildly ruborous appearance of the lower extremities. There is mild edema which is usually worse by evening. Lymphatic: Present: no adenopathy Neurologic: Present: surgical first assistant II-XII nml as tested, no motor/sensory deficits, alert , normal mood/affect, oriented x 3 Appearance: Present: appropriate appearance, appropriate insight, neat, no memory impairment Eye contact: Present: cooperative, good eye contact, normal speech Thoughts: Present: normal thought pattern, no apparent hallucination. Absent: auditory hallucinations, delusions Diagnostic Studies: Laboratory Results WBC 11.7 K/mm3 (4.0-10.5) H 05/06/17 20:32 RBC 4.45 M/mm3 (4.2-5.4) 05/06/17 20:32 Hgb 14.0 gm/dL (12.5-16.0) 05/06/17 20:32 Hct 42.2 % (37.0-47.0) 05/06/17 20:32 MCV 94.8 fl (78-100) 05/06/17 20:32 MCH 31.5 pg (27-31) H 05/06/17 20:32 MCHC 33.2 g/dl (32-36) 05/06/17 20:32 RDW 15.3 % (11.5-14.0) H 05/06/17 20:32 Plt Count 292 K/mm3 (150-450) 05/06/17 20:32 MPV 10.5 fl (6.0-9.5) H 05/06/17 20:32 Immature Gran % (Auto) 0.30 % (0.001-0.429) 05/06/17 20: Immature Gran # (Auto) 0.04 K/mm3 (0.000-0.0310) H 05/06/17 20:32 Neutrophils % 78.7 % (42-75.0) H 05/06/17 20:32 Lymphocytes % 11.7 % (20-51) L 05/06/17 20: Monocytes % 7.9 % (0.0-9) 05/06/17 20: Eosinophils % 1.0 % (0.0-3.0) 05/06/17 20: Basophils % 0.4 % (0.0-1.0) 05/06/17 20: Nucleated RBC % 0.0 k/mm3 (0-1) 05/06/17 20: Neutrophils # 9.2 K/mm3 (1.3-6.0) H 05/06/17 20:32 Lymphocytes # 1.37 k/mm3 (1.5-3.5) L 05/06/17 20: Monocytes # 0.9 k/mm3 (0.0-1.0) 05/06/17 20: Eosinophils # 0.1 k/mm3 (0.0-0.7) 05/06/17 20: Absolute Basophils 0.1 k/mm3 (0.0-0.1) 05/06/17 20:32 D-Dimer 1.50 mg/L (0.19-0.49) H 05/06/17 20:32 Sodium 146 mmol/L (132-142) H 05/06/17 20:32 Plasma Sodium 146 mmol/L (130-142) H 05/06/17 20:32 Potassium 4.4 mmol/L (3.4-4.6) 05/06/17 20:32 Chloride 106 mmol/L (97-106) 05/06/17 20:32 Carbon Dioxide 27.7 mmol/L (24-32.6) 05/06/17 20:32 Anion Gap 16.7 mmol/L (6.8-13.8) H 05/06/17 20:32 BUN 22 mg/dL (3-23) 05/06/17 20:32 Creatinine 0.99 mg/dL (0.4-1.4) 05/06/17 20:32 Est GFR (Non-Af Amer) 58 mL/min (60-130) L 05/06/17 20:32 BUN/Creatinine Ratio 22.2 (9.0-21.6) H 05/06/17 20:32 Random Glucose 123 mg/dL (70-110) H 05/06/17 20:32 Calcium 9.5 mg/dL (7.9-10.9) 05/06/17 20:32 Calcium Adj for Albumin 9.7 mg/dL (8.4-10.2) 05/06/17 20:32 Total Bilirubin 0.3 mg/dL (0.0-1.1) 05/06/17 20:32 AST 33 U/L (0-48) 05/06/17 20:32 ALT 59 U/L (19-67) 05/06/17 20:32 Alkaline Phosphatase 110 U/L (50-170) 05/06/17 20:32 B-Natriuretic Peptide 27566 pg/mL (5-550) H 05/06/17 20:32 Total Protein 7.2 gm/dL (6.2-8.2) 05/06/17 20:32 Albumin 3.4 gm/dl (3.4-5.0) 05/06/17 20:32 Troponin I 0.035 ng/ml (0.00-0.10) 05/07/17 12:34 Assessment/Plan - Narrative Narrative: Admit for observation. Monitor pulse ox and telemetry. Note: Her monitor pattern through the night he shown 2 episodes of V. tach one of 9 beats and the other 13 beats salvos. It is not sustained post past that and then returns to normal sinus rhythm. I will start her on a beta shayan once daily. I'll also change her from Lovenox to xarelto 15 mg twice a day for 3 weeks. That should convert to 20 mg per day thereafter. She is a patient of Dr. Crockett will assume her care today and discharge her as he deems appropriate. Priyank Sheridan D.O. 05/07/2017 Dictation time 1356 PM - Assessment/Plan (1) Pulmonary embolism Problem: Acute Qualifiers: Pulmonary embolism type: other Chronicity: acute Acute cor pulmonale presence: without acute cor pulmonale Qualified Code(s): I26.99 - Other pulmonary embolism without acute cor pulmonale (2) Ventricular tachycardia (paroxysmal) Problem: Acute (3) Abnormal EKG Problem: Acute
[2017-05-07] MEDS: OXYBUTYNIN CHLORIDE 5 MG TABLET PO SCH ×2 (14:38→17:46)
[2017-05-07] MEDS: APIXABAN 5 MG TABLET PO SCH (17:46)
[2017-05-07] MEDS: LISINOPRIL 10 MG TABLET PO SCH (17:46)
[2017-05-07] MEDS: ATORVASTATIN CALCIUM 40 MG TABLET PO SCH (21:02)
[2017-05-08 06:18] LABS: Hematocrit 36.3 % (37.0-47.0); Hemoglobin 12.2 gm/dL (12.5-16.0); Mean Cell Volume 93.8 fl (78-100); Mean Corpuscular Hemoglobin 31.5 pg (27-31); Mean Corpuscular Hgb Conc 33.6 g/dl (32-36); Mean Platelet Volume 10.5 fl (6.0-9.5); Neutrophil # 4.9 K/mm3 (1.3-6.0); Neutrophil % 71.1 % (42-75.0); Platelet Count 258 K/mm3 (150-450); Red Blood Count 3.87 M/mm3 (4.2-5.4); Red Cell Distribution Width 15.3 % (11.5-14.0); White Blood Count 6.9 K/mm3 (4.0-10.5)
[2017-05-08 07:35] LABS: Albumin * 2.6 gm/dl (3.4-5.0); Anion Gap 12.7 mmol/L (6.8-13.8); BUN/Creatinine Ratio 26.1 (9.0-21.6); Bilirubin, Total 0.3 mg/dL (0.0-1.1); Calcium * 8.2 mg/dL (7.9-10.9); Carbon Dioxide 28.5 mmol/L (24-32.6); Potassium 3.2 mmol/L (3.4-4.6); Total Protein 5.8 gm/dL (6.2-8.2)
[2017-05-08] MEDS ORDERED: POTASSIUM BICARBONATE/CIT AC 25 MEQ TABLET.EFF PO ONE ×2 (08:57→13:00)
--- NOTE | 2017-05-08 08:58 | ECHO ---
This report is available in the EMR
[2017-05-08] MEDS ORDERED: FUROSEMIDE 10 MG/ML VIAL IV ONE (08:59)
--- NOTE | 2017-05-08 09:14 | PN ---
Subjective - Date and Time Seen Date: 05/08/17 Time: 09:07 Subjective Narrative: No chest pain feeling and breathing better Objective - Review of Systems Generalized/Overall Review: Reports: No Symptoms Reported EENTM: Reports: No Symptoms Reported Respiratory: Reports: No Symptoms Reported Cardiac: Reports: No Symptoms Reported Abdominal: Reports: No Symptoms Reported Genitourinary Symptoms: Reports: Incontinent Misc: All systems neg except as marked - Vitals Vitals: Last Vital Signs Temp 36.7 C 05/08/17 07:37 Pulse 84 05/08/17 07:37 Resp 20 05/08/17 07:37 BP 116/68 05/08/17 07:37 Pulse Ox 94 05/08/17 07:37 - Abnormal Lab Findings Abnormal Lab Findings: Abnormal Lab Results 05/08/17 05/08/17 Range/Units 06:14 06:14 RBC 3.87 L (4.2-5.4) M/mm3 Hgb 12.2 L (12.5-16.0) gm/dL Hct 36.3 L (37.0-47.0) % MCH 31.5 H (27-31) pg RDW 15.3 H (11.5-14.0) % MPV 10.5 H (6.0-9.5) fl Lymphocytes % 16.8 L (20-51) % Monocytes % 9.6 H (0.0-9) % Lymphocytes # 1.16 L (1.5-3.5) k/mm3 Sodium 143 H (132-142) mmol/L Plasma Sodium 144 H (130-142) mmol/L Potassium 3.2 L D (3.4-4.6) mmol/L BUN/Creatinine Ratio 26.1 H (9.0-21.6) Random Glucose 138 H (70-110) mg/dL B-Natriuretic Peptide 6748 H (5-550) pg/mL Total Protein 5.8 L (6.2-8.2) gm/dL Albumin 2.6 L (3.4-5.0) gm/dl - Exam Constitutional: Present: Alert, Oriented x3, Cooperative ENT Exam: Present: normal ENT inspection Respiratory: Present: no respiratory distress, rales Cardiovascular/Chest: Present: regular rate, rhythm, no JVD Abdomen: Present: soft, nontender Extremity: Present: no pedal edema Assessment/Plan - Problems/Diagnosis (1) Pulmonary embolism Problem: Acute Qualifiers: Pulmonary embolism type: other Chronicity: acute Acute cor pulmonale presence: without acute cor pulmonale Qualified Code(s): I26.99 - Other pulmonary embolism without acute cor pulmonale Narrative: Continue treatment of pulmonary emboli with eliquiz (2) Basilar artery aneurysm Problem: Acute Narrative: I have spoken to Dr. Arvin Nina neurosurgeon from [facility] who agree for patient to continue Eliquiz for PE inspite of her brain aneurysm (3) CHF (congestive heart failure) Problem: Acute Narrative: Echocardiogram showed ejection fraction of 20% so he will be started on lisinopril and Aldactone and IV Lasix
[2017-05-08] MEDS: APIXABAN 5 MG TABLET PO SCH ×2 (10:00→20:10)
[2017-05-08] MEDS: METOPROLOL SUCCINATE 25 MG TABLET.SA PO SCH (10:00)
[2017-05-08] MEDS: SPIRONOLACTONE 25 MG TABLET PO SCH (10:01)
[2017-05-08] MEDS: OXYBUTYNIN CHLORIDE 5 MG TABLET PO SCH ×3 (10:01→17:08)
[2017-05-08] MEDS: PANTOPRAZOLE SODIUM 40 MG TABLET.EC PO SCH (10:01)
[2017-05-08] MEDS: CALCIUM CARBONATE/VITAMIN D3 1 TAB TABLET PO SCH (10:01)
[2017-05-08] MEDS: ASPIRIN 81 MG TABLET.DR PO SCH (10:01)
[2017-05-08] MEDS: LISINOPRIL 10 MG TABLET PO SCH (10:16)
[2017-05-08] MEDS ORDERED: DIPHENOXYLATE HCL/ATROP SULF 2.5 MG TABLET PO PRN ×2 (16:18→16:19)
[2017-05-08] MEDS: ATORVASTATIN CALCIUM 40 MG TABLET PO SCH (20:10)
[2017-05-09 06:12] LABS: Albumin * 2.7 gm/dl (3.4-5.0); Anion Gap 12.5 mmol/L (6.8-13.8); Bilirubin, Total 0.3 mg/dL (0.0-1.1); Ca. Corrected For Albumin 9.3 mg/dL (8.4-10.2); Calcium * 8.6 mg/dL (7.9-10.9); Carbon Dioxide 29.6 mmol/L (24-32.6); Potassium 4.1 mmol/L (3.4-4.6); Total Protein 6.1 gm/dL (6.2-8.2)
[2017-05-09] MEDS: APIXABAN 5 MG TABLET PO SCH ×3 (08:16→22:31)
[2017-05-09] MEDS: METOPROLOL SUCCINATE 25 MG TABLET.SA PO SCH (08:16)
[2017-05-09] MEDS: CALCIUM CARBONATE/VITAMIN D3 1 TAB TABLET PO SCH (08:16)
[2017-05-09] MEDS: ASPIRIN 81 MG TABLET.DR PO SCH (08:16)
[2017-05-09] MEDS: SPIRONOLACTONE 25 MG TABLET PO SCH (08:16)
[2017-05-09] MEDS: OXYBUTYNIN CHLORIDE 5 MG TABLET PO SCH ×3 (08:16→16:30)
[2017-05-09] MEDS: LISINOPRIL 10 MG TABLET PO SCH (08:16)
[2017-05-09] MEDS: PANTOPRAZOLE SODIUM 40 MG TABLET.EC PO SCH (08:16)
--- NOTE | 2017-05-09 09:03 | PN ---
Subjective - Date and Time Seen Date: 05/09/17 Time: 09:00 Subjective Narrative: feeling and breathing better; no diarrhea Objective - Review of Systems Generalized/Overall Review: Reports: No Symptoms Reported EENTM: Reports: No Symptoms Reported Respiratory: Reports: No Symptoms Reported Cardiac: Reports: No Symptoms Reported Abdominal: Reports: No Symptoms Reported - Vitals Vitals: Last Vital Signs Temp 36.2 C L 05/09/17 06:39 Pulse 63 05/09/17 08:16 Resp 16 05/09/17 06:39 BP 127/64 05/09/17 08:16 Pulse Ox 98 05/09/17 06:39 - Abnormal Lab Findings Abnormal Lab Findings: Abnormal Lab Results 05/09/17 Range/Units 05:47 BUN/Creatinine Ratio 25.0 H (9.0-21.6) Random Glucose 111 H (70-110) mg/dL B-Natriuretic Peptide 4672 H (5-550) pg/mL Total Protein 6.1 L (6.2-8.2) gm/dL Albumin 2.7 L (3.4-5.0) gm/dl - Exam Constitutional: Present: Alert, Oriented x3, Cooperative ENT Exam: Present: normal ENT inspection Respiratory: Present: lungs clear Cardiovascular/Chest: Present: regular rate, rhythm Abdomen: Present: soft, nontender Extremity: Present: no pedal edema Assessment/Plan - Problems/Diagnosis (1) Pulmonary embolism Problem: Acute Qualifiers: Pulmonary embolism type: other Chronicity: acute Acute cor pulmonale presence: without acute cor pulmonale Qualified Code(s): I26.99 - Other pulmonary embolism without acute cor pulmonale (2) Basilar artery aneurysm Problem: Acute (3) CHF (congestive heart failure) Problem: Acute Narrative: for possible discharge to [place] tomorrow
[2017-05-09] MEDS ORDERED: APIXABAN 5 MG TABLET PO ONE (09:30)
[2017-05-09] MEDS: FUROSEMIDE 20 MG TABLET PO SCH (10:02)
[2017-05-09] MEDS: ATORVASTATIN CALCIUM 40 MG TABLET PO SCH (22:32)
[2017-05-10 05:56] LABS: Albumin * 2.7 gm/dl (3.4-5.0); BUN/Creatinine Ratio 30.2 (9.0-21.6); Bilirubin, Total 0.3 mg/dL (0.0-1.1); Ca. Corrected For Albumin 9.1 mg/dL (8.4-10.2); Calcium * 8.4 mg/dL (7.9-10.9); Carbon Dioxide 30.4 mmol/L (24-32.6); Potassium 3.4 mmol/L (3.4-4.6); Total Protein 5.9 gm/dL (6.2-8.2)
[2017-05-10] MEDS: CALCIUM CARBONATE/VITAMIN D3 1 TAB TABLET PO SCH (08:30)
[2017-05-10] MEDS: APIXABAN 5 MG TABLET PO SCH (08:30)
[2017-05-10] MEDS: OXYBUTYNIN CHLORIDE 5 MG TABLET PO SCH (08:30)
[2017-05-10] MEDS: METOPROLOL SUCCINATE 25 MG TABLET.SA PO SCH (08:31)
[2017-05-10] MEDS: ASPIRIN 81 MG TABLET.DR PO SCH (08:31)
[2017-05-10] MEDS: SPIRONOLACTONE 25 MG TABLET PO SCH (08:31)
[2017-05-10] MEDS: LISINOPRIL 10 MG TABLET PO SCH (08:32)
[2017-05-10] MEDS: PANTOPRAZOLE SODIUM 40 MG TABLET.EC PO SCH (08:32)
[2017-05-10 10:11] VITALS: BP 125/60
--- NOTE | 2017-05-10 10:21 | DS ---
(1) Pulmonary embolism Problem: Acute Qualifiers: Pulmonary embolism type: other Chronicity: acute Acute cor pulmonale presence: without acute cor pulmonale Qualified Code(s): I26.99 - Other pulmonary embolism without acute cor pulmonale (2) Basilar artery aneurysm Problem: Chronic (3) CHF (congestive heart failure) Problem: Acute Description of Stay: 76-year-old white female was admitted because of chest pain and shortness of breath chest x-ray showed cardiomegaly and right-sided pleural effusion chest CT showed pulmonary emboli. BNP elevated at 12,000; she was treated. With Lovenox and then was changed to adequately use. Echocardiogram showed cardiomyopathy with ejection fraction of 20% he was given IV Lasix and was started . On metoprolol lisinopril and Aldactone. Cardiology consultation with Dr. Alvares was made and he agree on the treatment plan. Because of this brain aneurysm I consulted on the telephone her neurosurgeon Dr. Arvin [facility] regarding anticoagulation on her situation and according to him he agree On starting her on anticoagulation. Chest x-ray showed resolution of CHF and BNP has decreased more than 50% from her admission. On the day of discharge she is feeling and breathing better so she will be transferred to [facility] Procedures Performed: none Discharge Location: [facility] Disposition: SNF Condition: Fair Discharge Activity: Activity as tolerated Discharge Diet: Low salt Referrals: Juan Crockett MD [Primary Care Provider] - Additional Patient Instructions (free text): Follow up with Dr. Crockett in 1 week -Please make TCM appointment unless half-way discharge. Thank you! Leslee @ extension [phone] Prescriptions (Any new or edited meds): Apixaban [Eliquis] 5 mg PO BID #60 tablet Diphenoxylate HCl/Atrop Sulf [Lomotil] 2.5 mg PO QID PRN #30 tablet PRN Reason: Diarrhea Furosemide [Lasix] 20 mg PO DAILY@1100 #90 tablet Lisinopril [Zestril] 10 mg PO DAILY #90 tablet Metoprolol Succinate [Toprol Xl] 25 mg PO DAILY #30 tablet.sa Psyllium Husk (with Sugar) [Metamucil] 1 pkt PO BID #60 packet Spironolactone [Aldactone] 25 mg PO DAILY #90 tablet Complete Home Medications List: Complete Home Medication List: Oxybutynin Chloride 5 mg PO TID 02/28/12 Acetaminophen [Tylenol] 500 mg PO BID PRN 02/22/17 Aspirin [Aspirin EC] 81 mg PO DAILY 02/22/17 Atorvastatin Calcium [Lipitor] 40 mg PO HS 02/22/17 Calcium Carbonate/Vitamin D3 [Oyster Shell Calcium-Vit D Tab] 1 each PO DAILY Multivitamin [Multivitamins] 1 tab PO DAILY 02/22/17 Pantoprazole Sodium 40 mg PO DAILY 02/22/17 Apixaban [Eliquis] 5 mg PO BID #60 tablet 05/10/17 Diphenoxylate HCl/Atrop Sulf [Lomotil] 2.5 mg PO QID PRN #30 tablet 05/10/17 Furosemide [Lasix] 20 mg PO DAILY@1100 #90 tablet 05/10/17 Lisinopril [Zestril] 10 mg PO DAILY #90 tablet 05/10/17 Metoprolol Succinate [Toprol Xl] 25 mg PO DAILY #30 tablet.sa 05/10/17 Psyllium Husk (with Sugar) [Metamucil] 1 pkt PO BID #60 packet 05/10/17 Spironolactone [Aldactone] 25 mg PO DAILY #90 tablet 05/10/17
[2017-05-10] MEDS: FUROSEMIDE 20 MG TABLET PO SCH (10:43)
[2017-05-16] MEDS ORDERED: APIXABAN 5 MG TABLET PO SCH (09:00)
== END 2017-05-10 12:25 | DRG 175 ==
LOC: ER 19:47 → MS 22:44
PROVIDERS: ADMIT Family Medicine; ATTEND Internal Medicine
PROC: B246ZZZ Ultrasonography of Right and Left Heart (ICD-10-PCS; principal; 2017-05-07)
DX: E78.5 Hyperlipidemia, unspecified; I26.99 Other pulmonary embolism without acute cor pulmonale; I50.41 Acute combined systolic (congestive) and diastolic (congestive) heart failure; I72.5 Aneurysm of other precerebral arteries; I47.2 Ventricular tachycardia; Z88.2 Allergy status to sulfonamides; Z86.73 Personal history of transient ischemic attack (TIA), and cerebral infarction without residual deficits; Z79.82 Long term (current) use of aspirin; Z88.1 Allergy status to other antibiotic agents; I10 Essential (primary) hypertension; J44.9 Chronic obstructive pulmonary disease, unspecified

== ENCOUNTER 2018-01-03 12:40 | Inpatient (IN) | payer BC, MEDICARE ==
[2018-01-03 13:26] LABS: Hematocrit 31.3 % (37.0-47.0); Hemoglobin 10.4 gm/dL (12.5-16.0); Mean Cell Volume 95.4 fl (78-100); Mean Corpuscular Hemoglobin 31.7 pg (27-31); Mean Corpuscular Hgb Conc 33.2 g/dl (32-36); Mean Platelet Volume 8.6 fl (8-12.5); Neutrophil # 11.8 K/mm3 (1.3-6.0); Neutrophil % 82.1 % (42-75.0); Platelet Count 302 K/mm3 (150-450); Red Blood Count 3.28 M/mm3 (4.2-5.4); Red Cell Distribution Width 13.8 % (11.5-14.0); White Blood Count 14.3 K/mm3 (4.0-10.5)
[2018-01-03 13:29] LABS: Urine Bilirubin Negative (NEGATIVE); Urine Blood Negative /ul (NEGATIVE); Urine Ketone Negative (NEGATIVE); Urine Nitrite Negative (NEGATIVE); Urine Protein Negative (NEGATIVE); Urine Specific Gravity 1.015 SP.GR. (1.005-1.010); Urine Urobilinogen Normal (NORMAL)
[2018-01-03 13:39] LABS: Albumin * 2.4 gm/dl (3.4-5.0); Anion Gap 13.6 mmol/L (6.8-13.8); BUN/Creatinine Ratio 37.6 (9.0-21.6); Bilirubin, Total 0.3 mg/dL (0.0-1.1); Ca. Corrected For Albumin 9.2 mg/dL (8.4-10.2); Calcium * 8.2 mg/dL (7.9-10.9); Carbon Dioxide 20.6 mmol/L (24-32.6); Potassium 5.2 mmol/L (3.4-4.6); Total Protein 5.7 gm/dL (6.2-8.2)
[2018-01-03 13:39] LABS: Urine Appearance Clear (CLEAR); Urine Color Yellow; Urine RBC None Seen /hpf (0-5)
[2018-01-03 13:40] LABS: Urine Amorphous Sediment Few - 1+ (NONE-FEW); Urine Bacteria 2+; Urine Mucus Moderate - 2+
[2018-01-03] MEDS: NORMAL SALINE 1,000 ML IV SCH ×2 (14:00→15:15)
--- NOTE | 2018-01-03 14:18 | ERNOTE ---
Medical Problem HPI - Narrative Date of Service: 01/03/18 - General Chief Complaint: Altered Mental Status Time Seen by Provider: 01/03/18 13:14 Source: patient, family, RN notes reviewed Exam Limitations: clinical condition - Immun/Allergies/Home Medications Immunizations: IMMUNIZATION HX Immunizations Up to Date Yes History of Influenza Vaccine Yes Hx Pneumococcal Vaccination Yes Allergies/Adverse Reactions: Allergies ciprofloxacin [From Cipro] Allergy (Mild, Verified 10/01/17 14:32) Rash ciprofloxacin HCl [From Cipro] Allergy (Mild, Verified 10/01/17 14:32) RASH Sulfa (Sulfonamide Antibiotics) Allergy (Mild, Verified 10/01/17 14:32) Rash sulfamethoxazole [From Bactrim] Allergy (Unknown, Verified 10/01/17 14:32) trimethoprim [From Bactrim] Allergy (Unknown, Verified 10/01/17 14:32) Home Medications: HOME MEDICATIONS Oxybutynin Chloride 5 mg PO TID 02/28/12 [Last Taken Unknown] Acetaminophen [Tylenol] 500 mg PO BID PRN 02/22/17 [Last Taken Unknown] Aspirin [Aspirin EC] 81 mg PO DAILY 02/22/17 [Last Taken Unknown] Atorvastatin Calcium [Lipitor] 40 mg PO HS 02/22/17 [Last Taken Unknown] Calcium Carbonate/Vitamin D3 [Oyster Shell Calcium-Vit D Tab] 1 ea PO DAILY 02/22/17 [Last Taken Unknown] Pantoprazole Sodium 40 mg PO DAILY 02/22/17 [Last Taken Unknown] Diphenoxylate HCl/Atrop Sulf [Lomotil] 2.5 mg PO QID PRN #30 tab 05/10/17 [Last Taken Unknown] Furosemide [Lasix] 20 mg PO DAILY@1100 #90 tab 05/10/17 [Last Taken Unknown] Lisinopril [Zestril] 10 mg PO DAILY #90 tab 05/10/17 [Last Taken Unknown] Metoprolol Succinate [Toprol Xl] 25 mg PO DAILY #30 tablet.sa 05/10/17 [Last Taken Unknown] Psyllium Husk (with Sugar) [Metamucil] 1 pkt PO BID #60 packet 05/10/17 [Last Taken Unknown] Spironolactone [Aldactone] 25 mg PO DAILY #90 tab 05/10/17 [Last Taken Unknown] apixaban 5 mg tablet 5 mg PO BID tab 08/26/17 [Last Taken Unknown] hydrocodone 5 mg-acetaminophen 325 mg tablet 1 tab PO Q6H PRN 08/29/17 [Last Taken Unknown] multivitamin tablet 1 tab PO DAILY 08/29/17 [Last Taken Unknown] promethazine 12.5 mg tablet 12.5 mg PO Q4H PRN 08/29/17 [Last Taken Unknown] megestrol 400 mg/10 mL (10 mL) oral suspension 800 mg PO DAILY #200 ml 12/10/17 [Last Taken Unknown] - History of Present History Narrative: 77 year female brought to the ED by ambulance from the [facility] for a low blood pressure and decreased alertness. She has also not been eating and drinking well. She was started on Augmentin for a UTI 4 days ago. Her condition has gradually worsened all week. Her son reports that she is usually alert and talkative. She is confused at times today, but does answer some questions appropriately. She reports pain in her back. Date (Duration): 12/30/17 Timing: getting worse Review of Systems - Narrative Narrative: Unable to obtain ROS d/t patient condition Medical History (Last Reviewed 01/03/18 @ 14:39 by Ingrid Bucio NP) Aphagia Onset Date: Unknown Cardiomyopathy Onset Date: Unknown Mitral regurgitation Onset Date: Unknown Osteoporosis Onset Date: ~07/25/16 Bone Density Testing - bilateral femoral neck and radius Overactive bladder Onset Date: Unknown PVD (peripheral vascular disease) Onset Date: Unknown Pulmonary embolism Onset Date: ~04/2017 Urinary incontinence Onset Date: ~12/06/10 Pessary Cerebral aneurysm without rupture Onset Date: Unknown Basilar tip Cerebral aneurysm without rupture Onset Date: Unknown Disc degeneration, lumbar Onset Date: Unknown Hx of echocardiogram Onset Date: ~05/07/17 LV dilation with biventricular systolic dysfunction; EF of 20-25%; global LV hypokinesis; RV mildly dilated; biatrial enlargement Hyperlipidemia Onset Date: Unknown Hypertension Onset Date: Unknown Ischemic stroke Onset Date: ~04/21/15 Adams teeth removed Onset Date: Unknown Surgical History: Surgical History (Last Reviewed 01/03/18 @ 14:39 by Ingrid Bucio NP) H/O Spinal surgery Onset Date: Unknown H/O colonoscopy Onset Date: ~200707/17/02 and 2007 H/O cystoscopy Onset Date: Unknown H/O laparoscopy Onset Date: ~09/17/83 bilateral tubal History of cataract surgery Onset Date: ~03/03/12 Left - [place] History of surgery on arm Onset Date: ~1954 Fracture to left upper arm History of tonsillectomy Onset Date: Unknown Family History: Family History (Last Reviewed 01/03/18 @ 14:39 by Ingrid Bucio NP) Father , at age 86 Diabetes Mother , at 67 Pulmonary embolism Sister DVT (deep venous thrombosis) Social History: Preferred Language Austrian Do you have any sikhism or No cultural preference? Smoking Status Unknown if ever smoked Abuse History No History of abuse Psych History No pertinent hx Alcohol Use none Drug Use none (Last Updated 12/10/17 @ 14:45 by Juan Crockett MD) No Social History Section defined Physical Exam - Physical Exam General Appearance: Present: no apparent distress, cachetic, other - drowsy but answers questions Head Exam: Present: normal inspection, no evidence of injury Eye Exam: PERRL: left, Abnormal pupil: right Ears, Nose, Throat: Present: normal ENT inspection, normal pharynx Neck: Present: normal inspection, nontender, supple Respiratory: Present: no respiratory distress, no accessory muscle use, decreased breath sounds, expiration (prolonged) Cardiovascular/Chest: Present: regular rate, rhythm, normal peripheral pulses, systolic murmur Gastrointestinal/Abdominal: Present: nontender, nondistended, soft Extremity Exam: Present: normal inspection, non-tender, no edema Neurological Exam: Present: normal mood/affect, other - confused at times. Absent: alert, oriented Skin Exam: Present: warm/dry, other - grayish color in general, fingertips dusky ED Progress - Results and Orders Patient's Lab Results:: I have reviewed the patient's lab results. - Vital Signs Patient's Vital Signs:: I have reviewed the patient's vital signs. Vital Signs: Vital Signs 01/03/18 12:45 01/03/18 13:09 01/03/18 13:30 Temperature 36.5 C Pulse Rate 66 63 64 Respiratory Rate 14 12 12 Blood Pressure 99/39 86/49 L 96/42 O2 Sat by Pulse Oximetry 98 01/03/18 14:00 01/03/18 14:04 Temperature 36.0 C Pulse Rate 61 63 Respiratory Rate 12 Blood Pressure 86/39 L O2 Sat by Pulse Oximetry 97 - X-Ray X-Ray #1 X-Ray: chest Interpretation: Reviewed by me X-ray Comments: Chest Single View *: Patient is rotated to the patient's right. Hypoinflated lungs. There is a potential opacity in the left lower lobe retrocardiac region. Pulmonary vasculature is normal. No pneumothorax or pleural fluid collections apparent. Cardiac size within normal limits for AP technique as well as given differences in positioning of the patient. Patient has a large hiatal hernia, projecting posterior to the heart, grossly stable given differences in positioning. Moderate tortuosity of the thoracic aorta, also stable given technique. Trachea is in normal position given patient positioning. Osseous structures are grossly intact. Decreased mineralization of bone suggestive of underlying osteopenia or osteoporosis. IMPRESSION: 1. Left lower lobe infiltrate versus atelectasis. 2. Additional comments are as above. Electronically signed by Dez Cotton M.D.. - Progress/Reassessment Chief Complaint: Altered Mental Status Progress:: Unchanged Plan - Plan Plan: WBC is elevated at 14,200 but lactic acid is normal. UA indicates a UTI and a culture is pending. Her chest xray shows a left lower lobe infiltrate. Her PSI score places her at a level V. Blood cultures are pending. 1 Gm of Rocephin has been given IV. She received a liter of NS by EMS and another liter bolus in the ED. Her blood pressure remains in the low 90's and occasionally in the upper 80's with a heart rate in the 60's. Her oxygen saturation has been difficulty to obtain but has been in the low to mid 90's on room air. Dr. Sheridan was contacted and the patient will be admitted to med/surg for further treatment and monitoring. Departure Clinical Impression: Failure of outpatient treatment Pneumonia Qualifiers: Pneumonia type: due to unspecified organism Laterality: left Lung location: lower lobe of lung Qualified Code(s): J18.1 - Lobar pneumonia, unspecified organism Urinary tract infection Qualifiers: Urinary tract infection type: site unspecified Hematuria presence: without hematuria Qualified Code(s): N39.0 - Urinary tract infection, site not specified Sepsis Qualifiers: Sepsis type: sepsis due to unspecified organism Qualified Code(s): A41.9 - Sepsis, unspecified organism - Departure Disposition: Still a patient Condition: Poor Referrals: Juan Crockett MD [Primary Care Provider] -
[2018-01-03] MEDS ORDERED: DEXTROSE 5 % IN WATER 100 ML BAG IV ONE (14:41)
[2018-01-03] MEDS ORDERED: HYDROcodone/ACETAMINOPHEN 1 EACH TABLET PO PRN (16:09)
[2018-01-03] MEDS ORDERED: DIPHENOXYLATE HCL/ATROP SULF 2.5 MG TABLET PO PRN (16:09)
[2018-01-03] MEDS ORDERED: PROMETHAZINE HCL 25 MG TABLET PO PRN (16:09)
[2018-01-03] MEDS ORDERED: ACETAMINOPHEN 500 MG TABLET PO PRN (16:09)
--- NOTE | 2018-01-03 16:35 | HP ---
Chief Complaint - Chief Complaint Date of Service: 01/03/18 Time of Service: 15:45 Chief Complaint: Cough, poor appetite, poor oral intake of fluid, altered mental status. History of Present Illness: Mrs. Emanuel is a 77-year-old female who is a resident of [facility]. 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 She had a stroke which caused her to retire. 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 However she answers simple questions appropriately. In the emergency room they found her to be dehydrated, had a leukocytosis of 14,300. Creatinine was 2.18 and potassium is 5.7. She had been treated for UTI with Augmentin but the symptoms did not resolve. She has been more confused lately. She would not have tachycardia but was hypotensive with systolics in the 80s and 90s. She is at 94% on room air and pulse is been in the 60s. Her lactic acid level is normal. ER nurse impression is that she has pneumonia, dehydration, prerenal azotemia, and possibly urinary tract infection. She has been started on ceftriaxone and azithromycin. I will continue her on the same antibiotics. Appropriate cultures were taken in advance of antibiotics. Continue fluid resuscitation slowly. Repeat labs tomorrow morning. Respiratory therapy. Anticipate 3 days stay and back to skilled nursing about Saturday. Medical History (Last Reviewed 01/03/18 @ 14:39 by Ingrid Bucio NP) Aphagia Onset Date: Unknown Cardiomyopathy Onset Date: Unknown Mitral regurgitation Onset Date: Unknown Osteoporosis Onset Date: ~07/25/16 Bone Density Testing - bilateral femoral neck and radius Overactive bladder Onset Date: Unknown PVD (peripheral vascular disease) Onset Date: Unknown Pulmonary embolism Onset Date: ~04/2017 Urinary incontinence Onset Date: ~12/06/10 [place] Cerebral aneurysm without rupture Onset Date: Unknown Basilar tip Cerebral aneurysm without rupture Onset Date: Unknown Disc degeneration, lumbar Onset Date: Unknown Hx of echocardiogram Onset Date: ~05/07/17 LV dilation with biventricular systolic dysfunction; EF of 20-25%; global LV hypokinesis; RV mildly dilated; biatrial enlargement Hyperlipidemia Onset Date: Unknown Hypertension Onset Date: Unknown Ischemic stroke Onset Date: ~04/21/15 [place] teeth removed Onset Date: Unknown Surgical History: Surgical History (Last Reviewed 01/03/18 @ 14:39 by Ingrid Bucio NP) H/O Spinal surgery Onset Date: Unknown H/O colonoscopy Onset Date: ~200707/17/02 and 2007 H/O cystoscopy Onset Date: Unknown H/O laparoscopy Onset Date: ~09/17/83 bilateral tubal History of cataract surgery Onset Date: ~03/03/12 Left - [place] History of surgery on arm Onset Date: ~1954 Fracture to left upper arm History of tonsillectomy Onset Date: Unknown Family History: Family History (Last Reviewed 01/03/18 @ 14:39 by Ingrid Bucio NP) Father , at age 86 Diabetes Mother , at 67 Pulmonary embolism Sister DVT (deep venous thrombosis) Social History: Preferred Language Azeri Do you have any hoahaoism or No cultural preference? Smoking Status Unknown if ever smoked Abuse History No History of abuse Psych History No pertinent hx Alcohol Use none Drug Use none (Last Updated 12/10/17 @ 14:45 by Juan Crockett MD) No Social History Section defined Review Of Systems (GEN) - Review of Systems Generalized/Overall Review: Present: Weakness, Malaise, Fatigue. Absent: Chills, Fever EENTM: Present: No Symptoms Reported Respiratory: Present: Cough, Wheezing. Absent: Stridor Cardiac: Present: No Symptoms Reported, Chest Pain Abdominal: Present: No Symptoms Reported Genitourinary: Present: No Symptoms Reported Musculoskeletal: Present: No Symptoms Reported Neurological: Present: Weakness, Pre-existing Deficit Skin: Present: No Symptoms Reported Endocrine: Present: No Symptoms Reported Misc: All systems neg except as marked Immunizations: IMMUNIZATION HX Immunizations Up to Date Yes History of Influenza Vaccine Yes Hx Pneumococcal Vaccination Yes Allergies/Adverse Reactions: Allergies Allergy/AdvReac Type Severity Reaction Status Date / Time ciprofloxacin [From Cipro] Allergy Mild Rash Verified 01/03/18 16:11 ciprofloxacin HCl Allergy Mild RASH Verified 01/03/18 16:11 [From Cipro] Sulfa (Sulfonamide Allergy Mild Rash Verified 01/03/18 16:11 Antibiotics) sulfamethoxazole Allergy Unknown Verified 01/03/18 16:11 [From Bactrim] trimethoprim [From Bactrim] Allergy Unknown Verified 01/03/18 16:11 Home Medications: HOME MEDICATIONS Oxybutynin Chloride 5 mg PO TID 02/28/12 [Last Taken Unknown] Acetaminophen [Tylenol] 500 mg PO BID PRN 02/22/17 [Last Taken Unknown] Aspirin [Aspirin EC] 81 mg PO DAILY 02/22/17 [Last Taken Unknown] Atorvastatin Calcium [Lipitor] 40 mg PO HS 02/22/17 [Last Taken Unknown] Calcium Carbonate/Vitamin D3 [Oyster Shell Calcium-Vit D Tab] 1 ea PO DAILY 02/22/17 [Last Taken Unknown] Pantoprazole Sodium 40 mg PO DAILY 02/22/17 [Last Taken Unknown] Diphenoxylate HCl/Atrop Sulf [Lomotil] 2.5 mg PO QID PRN #30 tab 05/10/17 [Last Taken Unknown] Furosemide [Lasix] 20 mg PO DAILY@1100 #90 tab 05/10/17 [Last Taken Unknown] Lisinopril [Zestril] 10 mg PO DAILY #90 tab 05/10/17 [Last Taken Unknown] Metoprolol Succinate [Toprol Xl] 25 mg PO DAILY #30 tablet.sa 05/10/17 [Last Taken Unknown] Psyllium Husk (with Sugar) [Metamucil] 1 pkt PO BID #60 packet 05/10/17 [Last Taken Unknown] Spironolactone [Aldactone] 25 mg PO DAILY #90 tab 05/10/17 [Last Taken Unknown] apixaban 5 mg tablet 5 mg PO BID tab 08/26/17 [Last Taken Unknown] hydrocodone 5 mg-acetaminophen 325 mg tablet 1 tab PO Q6H PRN 08/29/17 [Last Taken Unknown] multivitamin tablet 1 tab PO DAILY 08/29/17 [Last Taken Unknown] promethazine 12.5 mg tablet 12.5 mg PO Q4H PRN 08/29/17 [Last Taken Unknown] megestrol 400 mg/10 mL (10 mL) oral suspension 800 mg PO DAILY #200 ml 12/10/17 [Last Taken Unknown] Exam - Exam Vital Signs: Vital Signs - Last Taken Temp 36.0 C 01/03/18 14:00 Pulse 63 01/03/18 14:04 Resp 12 01/03/18 14:00 BP 86/39 L 01/03/18 14:00 Pulse Ox 97 01/03/18 14:00 Constitutional: Present: Alert, Cooperative, Well developed, Well nourished, Mild distress, Lethargic, Elderly. Absent: Oriented x3 ENT Exam: Present: normal ENT inspection, hearing grossly normal, pharynx normal, TMs normal Eye Exam: bilateral eye: normal inspection, PERRL, EOMI Neck: Present: non-tender, full range of motion Back Exam: Present: normal inspection, no CVA tenderness, no vertebral tenderness Breasts: Present: Exam deferred Respiratory: Present: chest non-tender, lungs clear, normal breath sounds Cardiovascular/Chest: Present: normal peripheral pulses, regular rate, rhythm, no chest tenderness, no edema, no gallop, no JVD, no murmur, no rub Peripheral Pulses: carotid (R): 2+, carotid (L): 2+, radial (R): 2+, radial (L): 2+ Abdomen: Present: Normal bowel sounds, soft, nontender, nondistended, no rebound tenderness, no hepatospenomegaly, no masses /Rectal: Present: Exam deferred, External genitalia normal Extremity: Present: normal range of motion, non-tender, normal inspection, no pedal edema, no calf tenderness, normal capillary refill Skin Exam: Present: normal color, warm/dry, no cyanosis Lymphatic: Present: no adenopathy Neurologic: Present: systems manager II-XII nml as tested, abnormal gait Appearance: Present: appropriate appearance, impaired insight Eye contact: Present: cooperative, good eye contact Thoughts: Present: normal thought pattern, no apparent hallucination Diagnostic Studies: Abnormal Lab Results 01/03/18 01/03/18 01/03/18 Range/Units 13:05 13:19 13:19 WBC 14.3 H (4.0-10.5) K/mm3 RBC 3.28 L (4.2-5.4) M/mm3 Hgb 10.4 L (12.5-16.0) gm/dL Hct 31.3 L (37.0-47.0) % MCH 31.7 H (27-31) pg Immature Gran % (Auto) 0.60 H (0.001-0.429) % Immature Gran # (Auto) 0.08 H (0.000-0.0310) K/mm3 Neutrophils % 82.1 H (42-75.0) % Lymphocytes % 10.3 L (20-51) % Neutrophils # 11.8 H (1.3-6.0) K/mm3 Lymphocytes # 1.48 L (1.5-3.5) k/mm3 Potassium 5.2 H (3.4-4.6) mmol/L Chloride 109 H (97-106) mmol/L Carbon Dioxide 20.6 L (24-32.6) mmol/L BUN 82 H D (3-23) mg/dL Creatinine 2.18 H D (0.4-1.4) mg/dL Est GFR (Non-Af Amer) 23 L D (60-130) mL/min BUN/Creatinine Ratio 37.6 H (9.0-21.6) Total Protein 5.7 L (6.2-8.2) gm/dL Albumin 2.4 L (3.4-5.0) gm/dl Ur Leukocyte Esterase 100 H (NEGATIVE) /ul Urine WBC 5-10 H (0-5) /hpf Urine Bacteria 2+ H (NONE) Urine Mucus Moderate - 2+ H (NONE) Laboratory Results WBC 14.3 K/mm3 (4.0-10.5) H 01/03/18 13:19 RBC 3.28 M/mm3 (4.2-5.4) L 01/03/18 13:19 Hgb 10.4 gm/dL (12.5-16.0) L 01/03/18 13:19 Hct 31.3 % (37.0-47.0) L 01/03/18 13:19 MCV 95.4 fl (78-100) 01/03/18 13:19 MCH 31.7 pg (27-31) H 01/03/18 13:19 MCHC 33.2 g/dl (32-36) 01/03/18 13:19 RDW 13.8 % (11.5-14.0) 01/03/18 13:19 Plt Count 302 K/mm3 (150-450) 01/03/18 13:19 MPV 8.6 fl (8-12.5) 01/03/18 13:19 Immature Gran % (Auto) 0.60 % (0.001-0.429) H 01/03/18 13:19 Immature Gran # (Auto) 0.08 K/mm3 (0.000-0.0310) H 01/03/18 13:19 Neutrophils % 82.1 % (42-75.0) H 01/03/18 13:19 Lymphocytes % 10.3 % (20-51) L 01/03/18 13:19 Monocytes % 6.6 % (0.0-9) 01/03/18 13:19 Eosinophils % 0.3 % (0.0-3.0) 01/03/18 13:19 Basophils % 0.1 % (0.0-1.0) 01/03/18 13:19 Nucleated RBC % 0.0 k/mm3 (0-1) 01/03/18 13:19 Neutrophils # 11.8 K/mm3 (1.3-6.0) H 01/03/18 13:19 Lymphocytes # 1.48 k/mm3 (1.5-3.5) L 01/03/18 13:19 Monocytes # 0.9 k/mm3 (0.0-1.0) 01/03/18 13:19 Eosinophils # 0.0 k/mm3 (0.0-0.7) 01/03/18 13:19 Absolute Basophils 0.0 k/mm3 (0.0-0.1) 01/03/18 13:19 Sodium 138 mmol/L (132-142) 01/03/18 13:19 Plasma Sodium 138 mmol/L (130-142) 01/03/18 13:19 Potassium 5.2 mmol/L (3.4-4.6) H 01/03/18 13:19 Chloride 109 mmol/L (97-106) H 01/03/18 13:19 Carbon Dioxide 20.6 mmol/L (24-32.6) L 01/03/18 13:19 Anion Gap 13.6 mmol/L (6.8-13.8) 01/03/18 13:19 BUN 82 mg/dL (3-23) H D 01/03/18 13:19 Creatinine 2.18 mg/dL (0.4-1.4) H D 01/03/18 13:19 Est GFR (Non-Af Amer) 23 mL/min (60-130) L D 01/03/18 13:19 BUN/Creatinine Ratio 37.6 (9.0-21.6) H 01/03/18 13:19 Random Glucose 89 mg/dL (70-110) 01/03/18 13:19 Lactic Acid, Venous 1.4 mmol/L (0.4-2.0) 01/03/18 13:19 Calcium 8.2 mg/dL (7.9-10.9) 01/03/18 13:19 Calcium Adj for Albumin 9.2 mg/dL (8.4-10.2) 01/03/18 13:19 Total Bilirubin 0.3 mg/dL (0.0-1.1) 01/03/18 13:19 AST 21 U/L (0-48) 01/03/18 13:19 ALT 21 U/L (19-67) 01/03/18 13:19 Alkaline Phosphatase 60 U/L (50-170) 01/03/18 13:19 Total Protein 5.7 gm/dL (6.2-8.2) L 01/03/18 13:19 Albumin 2.4 gm/dl (3.4-5.0) L 01/03/18 13:19 Urine Color Yellow 01/03/18 13:05 Urine Appearance Clear (CLEAR) 01/03/18 13:05 Urine pH 6.0 pH (5.0-7.0) 01/03/18 13:05 Ur Specific Felt 1.015 SP.GR. (1.005-1.010) 01/03/18 13:05 Urine Protein Negative mg/dL (NEGATIVE) 01/03/18 13:05 Urine Glucose (UA) Negative mg/dL (NEGATIVE) 01/03/18 13:05 Urine Ketones Negative mg/dL (NEGATIVE) 01/03/18 13:05 Urine Blood Negative /ul (NEGATIVE) 01/03/18 13:05 Urine Nitrate Negative (NEGATIVE) 01/03/18 13:05 Urine Bilirubin Negative mg/dl (NEGATIVE) 01/03/18 13:05 Urine Urobilinogen Normal EU/dl (NORMAL) 01/03/18 13:05 Ur Leukocyte Esterase 100 /ul (NEGATIVE) H 01/03/18 13:05 Urine RBC None seen /hpf (0-5) 01/03/18 13:05 Urine WBC 5-10 /hpf (0-5) H 01/03/18 13:05 Ur Epithelial Cells None seen /hpf (0-5) 01/03/18 13:05 Amorphous Sediment Few - 1+ (NONE-FEW) 01/03/18 13:05 Urine Bacteria 2+ (NONE) H 01/03/18 13:05 Urine Mucus Moderate - 2+ (NONE) H 01/03/18 13:05 Urine Culture Comments Culture to follow 01/03/18 13:05 Assessment/Plan - Narrative Narrative: 1. Continue IV fluid replacement 2. Continue IV antibiotics 3. Recheck lab again in the morning 4. Physical therapy get her up and walking tomorrow 5. Occupational therapy evaluate her to see if there is any thing we can do to help her poststroke ADL issues. - Assessment/Plan (1) Pneumonia Problem: Acute Qualifiers: Pneumonia type: due to unspecified organism Laterality: left Lung location: lower lobe of lung Qualified Code(s): J18.1 - Lobar pneumonia, unspecified organism (2) Altered mental status Problem: Acute Qualifiers: Altered mental status type: disorientation Qualified Code(s): R41.0 - Disorientation, unspecified (3) Urinary tract infection Problem: Resolved Qualifiers: Urinary tract infection type: site unspecified Hematuria presence: without hematuria Qualified Code(s): N39.0 - Urinary tract infection, site not specified (4) CVA (cerebral vascular accident) Problem: Chronic Qualifiers: CVA mechanism: occlusion Precerebral and cerebral artery: middle cerebral artery Laterality of affected vessel: left Qualified Code(s): I63.512 - Cerebral infarction due to unspecified occlusion or stenosis of left middle cerebral artery
[2018-01-03] MEDS: OXYBUTYNIN CHLORIDE 5 MG TABLET PO SCH (17:48)
[2018-01-03] MEDS: NORMAL SALINE 1,000 ML IV PRN (17:48)
[2018-01-03] MEDS: APIXABAN 5 MG TABLET PO SCH (20:16)
[2018-01-03] MEDS: ROSUVASTATIN CALCIUM 20 MG TABLET PO SCH (20:16)
[2018-01-03] MEDS: PSYLLIUM SEED 1 PACKET PACKET PO SCH (20:17)
[2018-01-04] MEDS ORDERED: NORMAL SALINE 500 ML IV ONE (00:38)
[2018-01-04 06:16] LABS: Hematocrit 30.5 % (37.0-47.0); Mean Cell Volume 97.4 fl (78-100); Mean Corpuscular Hemoglobin 31.9 pg (27-31); Mean Corpuscular Hgb Conc 32.8 g/dl (32-36); Mean Platelet Volume 8.9 fl (8-12.5); Neutrophil # 11.1 K/mm3 (1.3-6.0); Neutrophil % 82.4 % (42-75.0); Platelet Count 307 K/mm3 (150-450); Red Blood Count 3.13 M/mm3 (4.2-5.4); Red Cell Distribution Width 13.7 % (11.5-14.0); White Blood Count 13.4 K/mm3 (4.0-10.5)
[2018-01-04 06:27] LABS: Anion Gap 15.2 mmol/L (6.8-13.8); BUN/Creatinine Ratio 39.1 (9.0-21.6); Calcium * 7.7 mg/dL (7.9-10.9); Carbon Dioxide 19.2 mmol/L (24-32.6); Potassium 4.4 mmol/L (3.4-4.6)
[2018-01-04] MEDS: PANTOPRAZOLE SODIUM 40 MG TABLET.EC PO SCH (07:14)
[2018-01-04] MEDS: AZITHROMYCIN 250 MG TABLET PO SCH ×2 (07:14→12:48)
[2018-01-04] MEDS: NORMAL SALINE 1,000 ML IV PRN ×2 (07:15→19:35)
[2018-01-04] MEDS: OXYBUTYNIN CHLORIDE 5 MG TABLET PO SCH ×3 (08:59→17:04)
[2018-01-04] MEDS: APIXABAN 5 MG TABLET PO SCH ×2 (08:59→21:30)
[2018-01-04] MEDS: LISINOPRIL 10 MG TABLET PO SCH (08:59)
[2018-01-04] MEDS: ASPIRIN 81 MG TABLET.DR PO SCH (08:59)
[2018-01-04] MEDS: METOPROLOL SUCCINATE 25 MG TABLET.SA PO SCH (08:59)
[2018-01-04] MEDS: MULTIVITAMINS 1 CAP CAPSULE PO SCH (08:59)
[2018-01-04] MEDS: SPIRONOLACTONE 25 MG TABLET PO SCH (08:59)
[2018-01-04] MEDS: CALCIUM CARBONATE/VITAMIN D3 1 TAB TABLET PO SCH (08:59)
[2018-01-04] MEDS: PSYLLIUM SEED 1 PACKET PACKET PO SCH ×2 (09:00→21:30)
[2018-01-04] MEDS: MEGESTROL ACETATE 40 MG/ML BTL PO SCH (09:01)
--- NOTE | 2018-01-04 11:50 | PN ---
Subjective - Date and Time Seen Date: 01/04/18 Time: 09:50 Subjective Narrative: Mrs. Emanuel is much improved this morning. She is more alert, quicker with answers and they are mostly appropriate. She is sittig up in a chair this morning and has eaten breakfast. Her lab is much imrproved. The urine is a gram neg. bacillus and flood cultures are not yet reported. EGFR has improved from 23 to 5 and the BUN is down from 80 to 42. WBC is still 13.2K with a left shift. Heart monitor has not shown any dysrhythmias and can be DCd now. Objective - Review of Systems Generalized/Overall Review: Reports: No Symptoms Reported - Feeling better. She says she is thinking better today. EENTM: Reports: No Symptoms Reported Respiratory: Reports: Cough, Shortness of Breath. Denies: Wheezing Cardiac: Reports: No Symptoms Reported Abdominal: Reports: No Symptoms Reported Genitourinary Symptoms: Reports: No Symptoms Reported - as compored to yesterday. 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 Mild to mod. expressive aphasia. Skin: Reports: No Symptoms Reported Endocrine: Reports: No Symptoms Reported - Vitals Vitals: Last Vital Signs Temp 36.4 C 01/04/18 08:00 Pulse 68 01/04/18 08:59 Resp 18 01/04/18 08:00 BP 103/40 01/04/18 08:59 Pulse Ox 94 01/04/18 08:00 - Abnormal Lab Findings Abnormal Lab Findings: Abnormal Lab Results 01/03/18 01/03/18 01/03/18 Range/Units 13:05 13:19 13:19 WBC 14.3 H (4.0-10.5) K/mm3 RBC 3.28 L (4.2-5.4) M/mm3 Hgb 10.4 L (12.5-16.0) gm/dL Hct 31.3 L (37.0-47.0) % MCH 31.7 H (27-31) pg Immature Gran % (Auto) 0.60 H (0.001-0.429) % Immature Gran # (Auto) 0.08 H (0.000-0.0310) K/mm3 Neutrophils % 82.1 H (42-75.0) % Lymphocytes % 10.3 L (20-51) % Neutrophils # 11.8 H (1.3-6.0) K/mm3 Lymphocytes # 1.48 L (1.5-3.5) k/mm3 Potassium 5.2 H (3.4-4.6) mmol/L Chloride 109 H (97-106) mmol/L Carbon Dioxide 20.6 L (24-32.6) mmol/L Anion Gap (6.8-13.8) mmol/L BUN 82 H D (3-23) mg/dL Creatinine 2.18 H D (0.4-1.4) mg/dL Est GFR (Non-Af Amer) 23 L D (60-130) mL/min BUN/Creatinine Ratio 37.6 H (9.0-21.6) Calcium (7.9-10.9) mg/dL Total Protein 5.7 L (6.2-8.2) gm/dL Albumin 2.4 L (3.4-5.0) gm/dl Ur Leukocyte Esterase 100 H (NEGATIVE) /ul Urine WBC 5-10 H (0-5) /hpf Urine Bacteria 2+ H (NONE) Urine Mucus Moderate - 2+ H (NONE) 01/04/18 01/04/18 Range/Units 05:55 05:55 WBC 13.4 H (4.0-10.5) K/mm3 RBC 3.13 L (4.2-5.4) M/mm3 Hgb 10.0 L (12.5-16.0) gm/dL Hct 30.5 L (37.0-47.0) % MCH 31.9 H (27-31) pg Immature Gran % (Auto) 0.60 H (0.001-0.429) % Immature Gran # (Auto) 0.08 H (0.000-0.0310) K/mm3 Neutrophils % 82.4 H (42-75.0) % Lymphocytes % 10.1 L (20-51) % Neutrophils # 11.1 H (1.3-6.0) K/mm3 Lymphocytes # 1.36 L (1.5-3.5) k/mm3 Potassium (3.4-4.6) mmol/L Chloride 110 H (97-106) mmol/L Carbon Dioxide 19.2 L (24-32.6) mmol/L Anion Gap 15.2 H (6.8-13.8) mmol/L BUN 43 H (3-23) mg/dL Creatinine (0.4-1.4) mg/dL Est GFR (Non-Af Amer) 51 L D (60-130) mL/min BUN/Creatinine Ratio 39.1 H (9.0-21.6) Calcium 7.7 L (7.9-10.9) mg/dL Total Protein (6.2-8.2) gm/dL Albumin (3.4-5.0) gm/dl Ur Leukocyte Esterase (NEGATIVE) /ul Urine WBC (0-5) /hpf Urine Bacteria (NONE) Urine Mucus (NONE) - Exam Constitutional: Present: Alert, Cooperative, Well developed, Well nourished, No distress. Absent: Oriented x3 - Oriented to place and familiar faces. ENT Exam: Present: normal ENT inspection, hearing grossly normal, pharynx normal, TMs normal Neck: Present: non-tender, supple, normal inspection, trachea midline, limited range of motion Breasts: Present: Exam deferred Respiratory: Present: chest non-tender, lungs clear, normal breath sounds, no respiratory distress, no accessory muscle use. Absent: No wheezing - No wheezing heard today Cardiovascular/Chest: Present: normal peripheral pulses, regular rate, rhythm, no chest tenderness, no edema, no gallop, no JVD, no murmur, no rub Abdomen: Present: Normal bowel sounds, soft, nontender, nondistended, no rebound tenderness, no hepatospenomegaly, no masses, obese /Rectal: Present: Exam deferred Extremity: Present: normal range of motion, non-tender, normal inspection, no pedal edema, no calf tenderness, normal capillary refill Skin Exam: Present: normal color, warm/dry, no cyanosis Lymphatic: Present: no adenopathy Neurologic: Present: 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 Progress activity as tolerated. 2. DC telemetry 3. continue current antibiotics as pt. is improving . 4. Urine culture is sterile so far and blood cultures are still pending 1st reporting. 5. Slowed IV rate yesterday. Less puffy today. - Problems/Diagnosis (1) Pneumonia Problem: Acute Qualifiers: Pneumonia type: due to unspecified organism Laterality: left Lung location: lower lobe of lung Qualified Code(s): J18.1 - Lobar pneumonia, unspecified organism (2) Altered mental status Problem: Acute Qualifiers: Altered mental status type: disorientation Qualified Code(s): R41.0 - Disorientation, unspecified (3) Urinary tract infection Problem: Resolved Qualifiers: Urinary tract infection type: site unspecified Hematuria presence: without hematuria Qualified Code(s): N39.0 - Urinary tract infection, site not specified (4) CVA (cerebral vascular accident) Problem: Chronic Qualifiers: CVA mechanism: occlusion Precerebral and cerebral artery: middle cerebral artery Laterality of affected vessel: left Qualified Code(s): I63.512 - Cerebral infarction due to unspecified occlusion or stenosis of left middle cerebral artery
[2018-01-04] MEDS: ROSUVASTATIN CALCIUM 20 MG TABLET PO SCH (21:29)
[2018-01-05] MEDS: PANTOPRAZOLE SODIUM 40 MG TABLET.EC PO SCH (07:09)
[2018-01-05] MEDS: NORMAL SALINE 1,000 ML IV PRN ×2 (08:47→22:14)
[2018-01-05] MEDS: MEGESTROL ACETATE 40 MG/ML BTL PO SCH (08:49)
[2018-01-05] MEDS: MULTIVITAMINS 1 CAP CAPSULE PO SCH (08:50)
[2018-01-05] MEDS: OXYBUTYNIN CHLORIDE 5 MG TABLET PO SCH ×3 (08:50→17:20)
[2018-01-05] MEDS: CALCIUM CARBONATE/VITAMIN D3 1 TAB TABLET PO SCH (08:51)
[2018-01-05] MEDS: SPIRONOLACTONE 25 MG TABLET PO SCH (08:51)
[2018-01-05] MEDS: ASPIRIN 81 MG TABLET.DR PO SCH (08:51)
[2018-01-05] MEDS: APIXABAN 5 MG TABLET PO SCH ×2 (08:52→20:14)
[2018-01-05] MEDS: PSYLLIUM SEED 1 PACKET PACKET PO SCH ×2 (08:52→20:14)
[2018-01-05] MEDS: AZITHROMYCIN 250 MG TABLET PO SCH (08:52)
[2018-01-05] MEDS: LISINOPRIL 10 MG TABLET PO SCH (08:55)
[2018-01-05] MEDS: METOPROLOL SUCCINATE 25 MG TABLET.SA PO SCH (08:56)
--- NOTE | 2018-01-05 13:22 | PN ---
Subjective - Date and Time Seen Date: 01/05/18 Time: 10:40 Subjective Narrative: Lynda appears to be doing well this morning. No C/o or requests. Nursing reports no new problems. VSS. Color is ok, mild acrocyanosis. Lab is ok. Continue current tx. Objective - Review of Systems Generalized/Overall Review: Reports: No Symptoms Reported EENTM: Reports: No Symptoms Reported Respiratory: Reports: No Symptoms Reported Cardiac: Reports: No Symptoms Reported Abdominal: Reports: No Symptoms Reported Genitourinary Symptoms: Reports: No Symptoms Reported Musculoskeletal Complaints: Reports: No Symptoms Reported Neurological: Reports: Pre-existing Deficit, Other - status post cva. dementia Skin: Reports: No Symptoms Reported Endocrine: Reports: No Symptoms Reported - Vitals Vitals: Last Vital Signs Temp 36.6 C 01/05/18 09:17 Pulse 73 01/05/18 09:17 Resp 18 01/05/18 09:17 BP 123/67 01/05/18 09:17 Pulse Ox 96 01/05/18 09:17 - Exam Constitutional: Present: Alert, Oriented x3, Cooperative, Well developed, Well nourished, No distress, Elderly, Thin and frail ENT Exam: Present: normal ENT inspection, hearing grossly normal, pharynx normal, TMs normal, hard of hearing Neck: Present: non-tender, full range of motion, supple, normal inspection Breasts: Present: Exam deferred, Nontender, Discharge Respiratory: Present: chest non-tender, lungs clear, normal breath sounds, no respiratory distress Cardiovascular/Chest: Present: normal peripheral pulses, regular rate, rhythm, no chest tenderness, no edema, no gallop, no JVD, no murmur, no rub Abdomen: Present: Normal bowel sounds, soft, nontender, nondistended, no rebound tenderness, no hepatospenomegaly, no masses /Rectal: Present: Exam deferred Extremity: Present: normal range of motion, non-tender, normal inspection, no pedal edema, no calf tenderness, normal capillary refill Skin Exam: Present: normal color, warm/dry, no cyanosis Lymphatic: Present: no adenopathy Neurologic: Present: 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 continure current tx. 2. morning lab 3. Discharge plan for tomorrow morning. - Problems/Diagnosis (1) Pneumonia Problem: Acute Qualifiers: Pneumonia type: due to unspecified organism Laterality: left Lung location: lower lobe of lung Qualified Code(s): J18.1 - Lobar pneumonia, unspecified organism (2) Altered mental status Problem: Acute Qualifiers: Altered mental status type: disorientation Qualified Code(s): R41.0 - Disorientation, unspecified (3) Urinary tract infection Problem: Resolved Qualifiers: Urinary tract infection type: site unspecified Hematuria presence: without hematuria Qualified Code(s): N39.0 - Urinary tract infection, site not specified (4) CVA (cerebral vascular accident) Problem: Chronic Qualifiers: CVA mechanism: occlusion Precerebral and cerebral artery: middle cerebral artery Laterality of affected vessel: left Qualified Code(s): I63.512 - Cerebral infarction due to unspecified occlusion or stenosis of left middle cerebral artery
[2018-01-05] MEDS: ROSUVASTATIN CALCIUM 20 MG TABLET PO SCH (20:14)
[2018-01-06 06:02] LABS: Hematocrit 27.3 % (37.0-47.0); Hemoglobin 9.1 gm/dL (12.5-16.0); Mean Cell Volume 95.1 fl (78-100); Mean Corpuscular Hemoglobin 31.7 pg (27-31); Mean Corpuscular Hgb Conc 33.3 g/dl (32-36); Mean Platelet Volume 8.8 fl (8-12.5); Neutrophil # 6.7 K/mm3 (1.3-6.0); Neutrophil % 73.6 % (42-75.0); Platelet Count 274 K/mm3 (150-450); Red Blood Count 2.87 M/mm3 (4.2-5.4); Red Cell Distribution Width 13.9 % (11.5-14.0); White Blood Count 9.1 K/mm3 (4.0-10.5)
[2018-01-06 06:08] LABS: BUN/Creatinine Ratio 14.3 (9.0-21.6); Calcium * 7.6 mg/dL (7.9-10.9); Estimated Creat Clear 51.4
[2018-01-06] MEDS: PANTOPRAZOLE SODIUM 40 MG TABLET.EC PO SCH (07:10)
[2018-01-06] MEDS: APIXABAN 5 MG TABLET PO SCH (08:06)
[2018-01-06] MEDS: ASPIRIN 81 MG TABLET.DR PO SCH (08:06)
[2018-01-06] MEDS: CALCIUM CARBONATE/VITAMIN D3 1 TAB TABLET PO SCH (08:06)
[2018-01-06] MEDS: SPIRONOLACTONE 25 MG TABLET PO SCH (08:06)
[2018-01-06] MEDS: OXYBUTYNIN CHLORIDE 5 MG TABLET PO SCH ×2 (08:06→13:33)
[2018-01-06] MEDS: MULTIVITAMINS 1 CAP CAPSULE PO SCH (08:07)
[2018-01-06] MEDS: PSYLLIUM SEED 1 PACKET PACKET PO SCH (08:07)
[2018-01-06] MEDS: METOPROLOL SUCCINATE 25 MG TABLET.SA PO SCH (08:07)
[2018-01-06] MEDS: LISINOPRIL 10 MG TABLET PO SCH (08:07)
[2018-01-06] MEDS: AZITHROMYCIN 250 MG TABLET PO SCH (08:08)
[2018-01-06] MEDS: MEGESTROL ACETATE 40 MG/ML BTL PO SCH (08:08)
--- NOTE | 2018-01-06 12:12 | DS ---
(1) Pneumonia Problem: Acute Qualifiers: Pneumonia type: due to unspecified organism Laterality: left Lung location: lower lobe of lung Qualified Code(s): J18.1 - Lobar pneumonia, unspecified organism (2) Altered mental status Problem: Resolved Qualifiers: Altered mental status type: disorientation Qualified Code(s): R41.0 - Disorientation, unspecified (3) Urinary tract infection Problem: Resolved Qualifiers: Urinary tract infection type: site unspecified Hematuria presence: without hematuria Qualified Code(s): N39.0 - Urinary tract infection, site not specified (4) CVA (cerebral vascular accident) Problem: Chronic Qualifiers: CVA mechanism: occlusion Precerebral and cerebral artery: middle cerebral artery Laterality of affected vessel: left Qualified Code(s): I63.512 - Cerebral infarction due to unspecified occlusion or stenosis of left middle cerebral artery Description of Stay: Mrs. Emanuel is a 77-year-old female who is a resident of [facility]. 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 She had a stroke which caused her to retire. 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 However she answers simple questions appropriately. In the emergency room they found her to be dehydrated, had a leukocytosis of 14,300. Creatinine was 2.18 and potassium is 5.7. She had been treated for UTI with Augmentin but the symptoms did not resolve. She has been more confused lately. She would not have tachycardia but was hypotensive with systolics in the 80s and 90s. She is at 94% on room air and pulse is been in the 60s. Her lactic acid level is normal. ER physician's impression is that she has pneumonia, dehydration, prerenal azotemia, and possibly urinary tract infection. She has been started on ceftriaxone and a zithromycin. She has been treated with IV antibiotics and has improved since admission. Her mental status is much improved. She now enters most questions appropriately. She has some expressive aphasia and probably some receptive aphasia residual from her stroke. I visited with her sister who is visiting here from [place] this morning. The sister's daughter is a physician in [place] and may wish to speak with someone tomorrow when she arrives. I have suggested they call Dr. Crockett's office since he knows her baseline. Today's lab: 1. EGFR is now up to 77(from 23 on admission) 2. Hemoglobin has dropped to 9.1 g this morning and hematocrit is 27.3%. I expect this may be hemodilution. 3. Potassium is at 4.0 (down from 5.2 on admission) 4. This morning's chest x-ray shows a poor quality study with severely hypoinflated lungs and poor body positioning. There is a questionable left greater than right basilar opacity and questionable bilateral pleural effusion left greater than right. 5. Urine cultures and blood cultures are no growth to date. Procedures Performed: none Results and Findings: Pending Mircobiology Results 01/03/18 13:50 Blood Blood Culture - Preliminary NO GROWTH AFTER 48 HOURS 01/03/18 13:19 Blood Blood Culture - Preliminary NO GROWTH AFTER 48 HOURS Lab Pending Results 01/03/18 13:05: Urine Color Yellow, Urine Appearance Clear, Urine pH 6.0, Ur Specific Chapin 1.015, Urine Protein Negative, Urine Glucose (UA) Negative, Urine Ketones Negative, Urine Blood Negative, Urine Nitrate Negative, Urine Bilirubin Negative, Urine Urobilinogen Normal, Ur Leukocyte Esterase 100 H, Urine RBC None seen, Urine WBC 5-10 H, Ur Epithelial Cells None seen, Amorphous Sediment Few - 1+, Urine Bacteria 2+ H, Urine Mucus Moderate - 2+ H, Urine Culture Comments Culture to follow 01/03/18 13:19: WBC 14.3 H, RBC 3.28 L, Hgb 10.4 L, Hct 31.3 L, MCV 95.4, MCH 31.7 H, MCHC 33.2, RDW 13.8, Plt Count 302, MPV 8.6, Immature Gran % (Auto) 0.60 H, Immature Gran # (Auto) 0.08 H, Neutrophils % 82.1 H, Lymphocytes % 10.3 L, Monocytes % 6.6, Eosinophils % 0.3, Basophils % 0.1, Nucleated RBC % 0.0, Neutrophils # 11.8 H, Lymphocytes # 1.48 L, Monocytes # 0.9, Eosinophils # 0.0, Absolute Basophils 0.0 01/03/18 13:19: Sodium 138, Plasma Sodium 138, Potassium 5.2 H, Chloride 109 H, Carbon Dioxide 20.6 L, Anion Gap 13.6, BUN 82 H D, Creatinine 2.18 H D, Est GFR (Non-Af Amer) 23 L D, BUN/Creatinine Ratio 37.6 H, Random Glucose 89, Calcium 8.2, Calcium Adj for Albumin 9.2, Total Bilirubin 0.3, AST 21, ALT 21, Alkaline Phosphatase 60, Total Protein 5.7 L, Albumin 2.4 L 01/03/18 13:19: Lactic Acid, Venous 1.4 01/04/18 05:55: WBC 13.4 H, RBC 3.13 L, Hgb 10.0 L, Hct 30.5 L, MCV 97.4, MCH 31.9 H, MCHC 32.8, RDW 13.7, Plt Count 307, MPV 8.9, Immature Gran % (Auto) 0.60 H, Immature Gran # (Auto) 0.08 H, Neutrophils % 82.4 H, Lymphocytes % 10.1 L, Monocytes % 6.2, Eosinophils % 0.6, Basophils % 0.1, Nucleated RBC % 0.0, Neutrophils # 11.1 H, Lymphocytes # 1.36 L, Monocytes # 0.8, Eosinophils # 0.1, Absolute Basophils 0.0 01/04/18 05:55: Sodium 140, Plasma Sodium 140, Potassium 4.4, Chloride 110 H, Carbon Dioxide 19.2 L, Anion Gap 15.2 H, BUN 43 H, Creatinine 1.10, Est GFR (Non-Af Amer) 51 L D, BUN/Creatinine Ratio 39.1 H, Random Glucose 71, Calcium 7.7 L 01/06/18 05:52: WBC 9.1 D, RBC 2.87 L, Hgb 9.1 L, Hct 27.3 L, MCV 95.1, MCH 31.7 H, MCHC 33.3, RDW 13.9, Plt Count 274, MPV 8.8, Immature Gran % (Auto) 0.90 H, Immature Gran # (Auto) 0.08 H, Neutrophils % 73.6, Lymphocytes % 17.9 L, Monocytes % 6.7, Eosinophils % 0.7, Basophils % 0.2, Nucleated RBC % 0.0, Neutrophils # 6.7 H, Lymphocytes # 1.62, Monocytes # 0.6, Eosinophils # 0.1, Absolute Basophils 0.0 01/06/18 06:00: Sodium 145 H, Plasma Sodium 145 H, Potassium 4.0, Chloride 114 H, Carbon Dioxide 20.0 L, Anion Gap 15.0 H, BUN 11 D, Creatinine 0.77, Est GFR (Non-Af Amer) 77 D, BUN/Creatinine Ratio 14.3, Random Glucose 93 D, Calcium 7.6 L Discharge Location: [facility] Disposition: SNF Condition: Fair Level of Care: SNF Discharge Activity: Activity as tolerated, Weight bearing Discharge Diet: General/regular food, Other - resume her usual alf diet Longterm Therapy: Physicial Therapy, Occupation Therapy, Speech Therapy Referrals: Juan Crockett MD [Primary Care Provider] - Additional Patient Instructions (free text): -Please make TCM appointment unless alf discharge. Thank you! Maeve @ [phone]. Prescriptions (Any new or edited meds): Cefuroxime Axetil [Ceftin] 250 mg PO Q12H #20 tab Complete Home Medications List: Complete Home Medication List: Oxybutynin Chloride 5 mg PO TID 02/28/12 Acetaminophen [Tylenol] 500 mg PO BID PRN 02/22/17 Aspirin [Aspirin EC] 81 mg PO DAILY 02/22/17 Atorvastatin Calcium [Lipitor] 40 mg PO HS 02/22/17 Calcium Carbonate/Vitamin D3 [Oyster Shell Calcium-Vit D Tab] 1 ea PO DAILY 02/22/17 Pantoprazole Sodium 40 mg PO DAILY 02/22/17 Diphenoxylate HCl/Atrop Sulf [Lomotil] 2.5 mg PO QID PRN #30 tab 05/10/17 Furosemide [Lasix] 20 mg PO DAILY@1100 #90 tab 05/10/17 Lisinopril [Zestril] 10 mg PO DAILY #90 tab 05/10/17 Metoprolol Succinate [Toprol Xl] 25 mg PO DAILY #30 tablet.sa 05/10/17 Psyllium Husk (with Sugar) [Metamucil] 1 pkt PO BID #60 packet 05/10/17 Spironolactone [Aldactone] 25 mg PO DAILY #90 tab 05/10/17 apixaban 5 mg tablet 5 mg PO DAILY tab 08/26/17 hydrocodone 5 mg-acetaminophen 325 mg tablet 1 tab PO Q6H PRN 08/29/17 multivitamin tablet 1 tab PO DAILY 08/29/17 promethazine 12.5 mg tablet 12.5 mg PO Q4H PRN 08/29/17 megestrol 400 mg/10 mL (10 mL) oral suspension 800 mg PO DAILY #200 ml 12/10/17 Cefuroxime Axetil [Ceftin] 250 mg PO Q12H #20 tab 01/06/18
[2018-01-06 13:45] VITALS: BP 111/63
== END 2018-01-06 13:40 | DRG 194 ==
LOC: ER 12:40 → MS 14:37
PROVIDERS: ADMIT Family Medicine; ATTEND Family Medicine
DX: I34.0 Nonrheumatic mitral (valve) insufficiency; Z88.1 Allergy status to other antibiotic agents; I69.320 Aphasia following cerebral infarction; E78.5 Hyperlipidemia, unspecified; N39.0 Urinary tract infection, site not specified; M51.36 Other intervertebral disc degeneration, lumbar region; J18.1 Lobar pneumonia, unspecified organism; Z68.1 Body mass index [BMI] 19.9 or less, adult; I42.9 Cardiomyopathy, unspecified; R79.89 Other specified abnormal findings of blood chemistry; R41.0 Disorientation, unspecified; Z82.49 Family history of ischemic heart disease and other diseases of the circulatory system; I95.9 Hypotension, unspecified; I10 Essential (primary) hypertension; Z88.2 Allergy status to sulfonamides; M81.0 Age-related osteoporosis without current pathological fracture; E86.0 Dehydration; R64 Cachexia; Z79.82 Long term (current) use of aspirin; I73.9 Peripheral vascular disease, unspecified; Z86.711 Personal history of pulmonary embolism
CPT/HCPCS: 36415; 71010; 71045; 80048; 80053; 81001; 83605; 85025; 87040; 87081; 87086; 96361; 96365; 97110; 97162; 99285